=== PATIENT | female | born 1980 | race Caucasian/White ===

== ENCOUNTER 2021-08-28 07:17 | Emergency (ER) | payer OTHER, SELFPAY ==
[2021-08-28 07:27] VITALS: BP 129/84; PULSE 104; RESP 18; TEMP 36.4; O2SAT 99; BMI 27.4
--- NOTE | 2021-08-28 08:30 | ED_ITS ---
HPI - Back Pain/Injury General Chief Complaint: Extremity Injury, Lower Stated Complaint: sciatic nerve pain Time Seen by Provider: 08/28/21 07:58 Source: patient and family Mode of arrival: ambulatory Limitations: no limitations History of Present Illness HPI Narrative: 41 y/o female with history of chronic low back pain, degenerative disc disease, hx migraines who presents to the ER with ongoing left lower extremity pain since March due to her sciatic nerve. She reports back in March she had a course of steroids with brief improvement. She has been suffering with the pain since. It has been worsening with no trauma. She reports pain with sitting or being in one position for too long. She reports the pain is mostly shooting down her left hip and leg with tingling and numbness of her left foot. She has been taking Naproxen with no relief. She denies urinary or bowel incontinence. She has an appointment with her PCP on 09/11 with plan for an MRI. MD elicited complaint: back pain Pertinent past history: prior back pain Timing: constant Severity: severe Pain scale (0-10): 10 Similar Symptoms Previously: Yes Quality: sharp and tingling Location: left lower back Radiation: left upper leg and left leg below the knee Exacerbating factors: movement Relieving factors: none Context: unknown Associated symptoms: difficulty walking, parasthesias, arthralgias and myalgias Treatments prior to arrival: NSAIDS Work related injury: No Related Data Home Medications Medication Instructions Recorded Confirmed naproxen 500 mg tablet 500 mg PO BID PRN 01/16/21 tizanidine 4 mg tablet 4 mg PO BEDTIME PRN 01/16/21 Previous Rx's Medication Instructions Recorded ifhixwzoey-viqepgzwwynae-sckowccc 2 cap PO Q4-6H PRN #30 cap 01/16/21 50 mg-300 mg-40 mg capsule (Fioricet) ondansetron 4 mg disintegrating 4 mg PO Q6H PRN #20 tab 01/16/21 tablet cyclobenzaprine 10 mg tablet 10 mg PO BID PRN #14 tab 04/23/21 dexamethasone 4 mg tablet 4 mg PO TID 6 Days #18 tab 04/23/21 (Decadron) cyclobenzaprine 10 mg tablet 10 mg PO TID PRN #14 tab 08/28/21 lidocaine 5 % topical patch 1 patch TOPICAL DAILY #15 ea 08/28/21 naproxen 500 mg tablet 500 mg PO BID PRN #30 tab 08/28/21 prednisone 20 mg tablet 40 mg PO DAILY #14 tab 08/28/21 tramadol 50 mg tablet 50 mg PO TID PRN #10 tab 08/28/21 Allergies Allergy/AdvReac Type Severity Reaction Status Date / Time oxycodone [From PERCOCET] Allergy Unknown UNKNOWN, Verified 08/28/21 07:24 hives Review of Systems Review of Systems: Constitutional: No Fever, No Chills Cardiovascular: No Chest Pain, No SOB Gastrointestinal: No Nausea, No Vomiting, No abdominal Pain Genitourinary: No Dysuria, No Urinary Frequency, No Hematuria Musculoskeletal: + joint pain, + Myalgias Skin: No Skin Lesions, No rash Neuro: No Weakness, + Numbness, No Dizziness, No Headache Psych: + Anxiety/Panic, No Depression Heme/Lymph: No Bruising, No Lymphadenopathy PMFSH Past Medical History Medical History (Updated 08/28/21 @ 09:11 by SATNAM Sims) Degenerative disc disease, lumbar Social History Social History Advance Directives: No Advance Directives Information Provided: No Physical Exam Vital Signs: Vital Signs: Last Vital Signs Temp 97.6 F 08/28/21 07:27 Pulse 104 H 08/28/21 07:27 Resp 17 08/28/21 09:19 BP 129/84 08/28/21 07:27 Pulse Ox 99 08/28/21 07:27 BMI result Body Mass Index 27.4 Appearance: Alert. Oriented X3. Appears uncomfortable. HEENT: normal external inspection. Neck: Normal inspection. Neck supple. CVS: Normal heart rate and rhythm. Pulses normal. Respiratory: No respiratory distress. Breath sounds normal. Abdomen: Soft and nontender. +BS x4 Skin: Skin warm and dry. Normal skin color. Normal skin turgor. No rashes. Back: normal inspection. left lower lumbar area and SI area with tenderness. Extremities: No lower extremity edema. left knee in slight flexion about 15 degrees for comfort, pain with full extension. +straight leg raise test at 30 degrees Neuro: Oriented X 3. No motor deficit. No sensory deficit. Antaglic gait Course Course Course Narrative: 41-year-old female presenting to the ER with 4 months of chronic left lower extremity and left back pain due to sciatica. she denies any trauma. She has been dealing with this for 4 months but woke up this morning and just could not do it anymore. She reports difficulty with her ADLs at home. She has appointment with her PCP in 2 weeks and could not wait any longer. She has been taking naproxen with minimal relief. Symptoms and clinical presentation are consistent with lumbar radiculopathy with shooting nerve pain some left lower extremity. She has no red flag sym ptoms of low back pain. She is denying need for STR And has plenty of support at home. Will give a IM Toradol, tramadol and reassess her pain. Reevaluation(s) Reevaluation #1: Pain improved. Tolerated Tramadol well. Will give Rx for steroids, pain control until she can follow up with her PCP in 2 weeks. Patient agrees with plan and is stable for d/c. Discharge Plan Discharge Clinical Impression: Chronic left-sided low back pain with left-sided sciatica Patient Disposition: Home, Self-Care Instructions: Sciatica (ED), Lumbar Radiculopathy (ED), Lower Back Exercises (ED) Additional Instructions: No bending, lifting or twisting. Use ice several times per day for 20 minutes at a time for the next 48 hours and then change to heat. Take medications as prescribed to help with pain and discomfort. Follow up with your Primary Care Doctor MARTIN If your pain worsens, if you develop new numbness, tingling, weakness, loss of function or incontinence call 911 or come back to the ER right away for evaluation. Prescriptions: New cyclobenzaprine 10 mg tablet 10 mg PO TID PRN (Reason: muscle spasm) Qty: 14 0RF prednisone 20 mg tablet 40 mg PO DAILY Qty: 14 0RF naproxen 500 mg tablet 500 mg PO BID PRN (Reason: pain) Qty: 30 0RF lidocaine 5 % adhesive patch,medicated 1 patch topical DAILY Qty: 15 0RF Rx Instructions: leave on most painful area for up to 12 hrs tramadol 50 mg tablet 50 mg PO TID PRN (Reason: severe pain (scale score 7-10)) Qty: 10 0RF No Action gpfjcfibbb-wluzfaslngbyu-yopb [Fioricet] 50-300-40 mg capsule 2 cap PO Q4-6H PRN (Reason: pain) Qty: 30 0RF Rx Instructions: do not exceed 6 caps per day ondansetron 4 mg tablet,disintegrating 4 mg PO Q6H PRN (Reason: nausea and vomiting) Qty: 20 0RF dexamethasone [Decadron] 4 mg tablet 4 mg PO TID 6 Days Qty: 18 0RF Rx Instructions: take with food cyclobenzaprine 10 mg tablet 10 mg PO BID PRN (Reason: muscle spasm) Qty: 14 0RF Interventions: ED Discharge Assessment Last Done: 08/28/21 09:30 Discharge Date/Time: 08/28/21 09:36
[2021-08-28] MEDS: traMADoL HCL 50 MG TABLET PO (08:43)
[2021-08-28] MEDS: Ketorolac Tromethamine 30 MG/ML VIAL IM (08:43)
[2021-08-28] MEDS: Lidocaine 4 % Patch ADH..PATCH 1 PATCH TRANSDERMA (08:43)
--- NOTE | 2021-08-28 09:18 | PC.NURSE ---
NO NEGATIVE REACTION NOTED FROM TRAMADOL. PT REPORTS SIGNIFICANT RELIEF FROM PAIN.
[2021-08-28 09:19] VITALS: RESP 17
== END 2021-08-28 09:36 | disposition home or self-care (01) ==
PROVIDERS: Emergency Provider Emergency Medicine; PCP Internal Medicine
DX: M54.42 Lumbago with sciatica, left side (principal); M79.605 Pain in left leg; Z79.899 Other long term (current) drug therapy
CPT/HCPCS: 96372; 99283; 99284; J1885

== ENCOUNTER → 2022-10-16 13:18 | Outpatient (BNVA) | payer OTHER, SELFPAY | PROVIDERS: PCP Internal Medicine; Visit Provider Neurological Surgery | DX: Z13.89 Encounter for screening for other disorder (principal) ==

== ENCOUNTER 2023-02-11 08:33 | Outpatient (REF) | payer OTHER, SELFPAY ==
--- NOTE | ~2023-02-11 | XR_ITS ---
EXAMINATION: 1. RADIOGRAPHS RIGHT KNEE 2. RADIOGRAPHS LEFT KNEE CLINICAL INFORMATION: Bilateral knee pain COMPARISON: None TECHNIQUE: 3 views of each knee were obtained FINDINGS: Right knee: No fracture or dislocation. No suprapatellar joint effusion. Joint spaces are well-maintained. No significant degenerative changes of the right knee. No focal soft tissue swelling of the anterior knee. Left knee: No fracture or dislocation. No suprapatellar joint effusion. Joint spaces are well-maintained. No appreciable degenerative changes. No focal soft tissue swelling the anterior knee. XR/XR knee LT 3V IMPRESSION: Unremarkable radiographs of the bilateral knees.
--- NOTE | ~2023-02-11 | XR_ITS ---
EXAMINATION: 1. RADIOGRAPHS RIGHT KNEE 2. RADIOGRAPHS LEFT KNEE CLINICAL INFORMATION: Bilateral knee pain COMPARISON: None TECHNIQUE: 3 views of each knee were obtained FINDINGS: Right knee: No fracture or dislocation. No suprapatellar joint effusion. Joint spaces are well-maintained. No significant degenerative changes of the right knee. No focal soft tissue swelling of the anterior knee. Left knee: No fracture or dislocation. No suprapatellar joint effusion. Joint spaces are well-maintained. No appreciable degenerative changes. No focal soft tissue swelling the anterior knee. XR/XR knee RT 3V IMPRESSION: Unremarkable radiographs of the bilateral knees.
== END 2023-02-11 08:34 | disposition home or self-care (01) ==
LOC: HO.HOSX 08:33
PROVIDERS: Visit Provider Orthopaedic Surgery
DX: S83.242A Other tear of medial meniscus, current injury, left knee, initial encounter (principal); M25.561 Pain in right knee
CPT/HCPCS: 73562

== ENCOUNTER 2023-02-11 12:51 | Outpatient (AMB) | payer OTHER, SELFPAY ==
--- NOTE | 2023-02-11 13:04 | A.OFFVIS_ITS ---
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 The patient states that she injured her left knee approximately 1 year ago. She twisted her knee and had acute onset of pain. Since that time her symptoms have gotten worse in spite of continued non operative treatments. She states that her left knee will ?lock? several times per day. She has had injections in the past which gave her minimal relief. She has also done physical therapy for 12 weeks over the last 6 months which aggravated her pain. She has tried Tylenol and ibuprofen which gave her minimal relief. Allergies oxycodone [From PERCOCET] Allergy (Unknown, Verified 08/28/21 07:24) UNKNOWN, hives [facility] Medical History (Updated 02/11/23 @ 13:25 by José Miguel Lees MD) Degenerative disc disease, lumbar Surgical History (Updated 02/11/23 @ 13:10 by Dora Mcdonough CMA) H/O tubal ligation Previous back surgery Social History (Updated 02/11/23 @ 13:10 by Dora Mcdonough CMA) Patient Tobacco Use Status: Former Tobacco user Quit Date: 4 years ago Current occupational status: disabled Physical Exam Vital Signs: BMI result Body Mass Index 27.8 Const Other: Well-nourished well-developed very friendly female awake alert and oriented x3 in no acute distress Extrem Other: Bilateral lower extremity examination shows good capillary refill, no skin lesions noted Left knee examination shows a minimal effusion, minimal crepitus with range of motion, tenderness along her medial joint line, positive Konstantin's test, positive patellar lateral subluxation apprehensive test Assessment & Plan Assessment & Plan (1) Tear of medial meniscus of left knee: Code(s): S83.242A - Other tear of medial meniscus, current injury, left knee, initial encounter Plan: Ms. Rosario presents with progressively worsening left knee pain and mechanical symptoms most likely due to patellar subluxation as well as possible tearing of her medial meniscus. Thus, I will send her for an MRI of her left knee for further evaluation. I will see her back once the MRI is completed to discuss the findings and treatment options. Feel free to call me at any time should both regarding her orthopedic management arise. Thank you very much for asking me to see this very friendly patient. I spent 22 minutes in reviewing the patient's records and imaging studies, seeing the patient and documenting in the medical record. Orders: Orders XR knee LT 3V Today M25.562 - Pain in left knee XR knee RT 3V Today M25.561 - Pain in right knee MR knee LT wo con Today S83.242A - Other tear of medial meniscus, current injury, left knee, initial encounter Coding Level of Care Code New Pt Level 2 (45673) Diagnoses Tear of medial meniscus of left knee S83.242A
[2023-02-11 13:07] VITALS: BMI 27.8
== END 2023-02-11 13:26 | disposition home or self-care (01) ==
PROVIDERS: PCP Internal Medicine; Visit Provider Orthopaedic Surgery
DX: S83.242A Other tear of medial meniscus, current injury, left knee, initial encounter (principal)
CPT/HCPCS: 99202

== ENCOUNTER 2023-03-18 19:31 | Outpatient (REF) | payer OTHER, SELFPAY ==
--- NOTE | ~2023-03-18 | MR_ITS ---
EXAMINATION: MR KNEE WITHOUT CONTRAST, LEFT CLINICAL INFORMATION: Left knee pain and swelling. Difficulty with weightbearing. Evaluate for a meniscal tear. COMPARISON: Left knee radiographs dated 02/11/2023. TECHNIQUE: MRI of the knee without contrast was performed using routine sequences on a high-field scanner. FINDINGS: MENISCI: Medial Meniscus: Intact Lateral Meniscus: Intact LIGAMENTS: Cruciate: Intact Collateral: Intact EXTENSOR MECHANISM: Intact quadriceps and patellar tendons. Mildly elevated TT TG distance measuring 1.6 cm. Mild patella aleah. Edema within the superolateral aspect of Hoffa's fat pad, which can be seen in the setting of patellar tendon lateral femoral condyle friction syndrome. ARTICULAR CARTILAGE/BONE: Patellofemoral Compartment: Central patellar median ridge and lateral patellar facet articular cartilage signal heterogeneity with areas of partial-thickness fibrillation. Tiny marginal osteophytes. Medial Compartment: Intact articular cartilage. Lateral Compartment: Full-thickness articular cartilage defect at the weightbearing lateral tibial plateau measuring 0.9 x 0.9 cm (AP by ML) with prominent underlying marrow edema. JOINT FLUID AND BURSAE: Small joint effusion and small Brown's cyst. Small loose body within the joint recess posterosuperior to the medial femoral condyle measuring up to 0.4 cm (coronal image 04/25). MR/MR knee LT wo con IMPRESSION: 1. Full-thickness articular cartilage defect at the weightbearing lateral tibial plateau measuring 0.9 x 0.9 cm with prominent underlying marrow edema. 2. Mild patellofemoral osteoarthritis. Small joint effusion and small Brown's cyst. Small loose body within the joint recess posterosuperior to the medial femoral condyle measuring up to 0.4 cm. 3. No acute meniscal or ligamentous injury. 4. Mildly elevated TT TG distance with patella aleah. Edema within the superolateral aspect of Hoffa's fat pad, which can be seen in the setting of patellar tendon lateral femoral condyle friction syndrome.
== END 2023-03-18 19:32 | disposition home or self-care (01) ==
LOC: HO.MRI 19:31
PROVIDERS: PCP Internal Medicine; Visit Provider Orthopaedic Surgery
DX: S83.242A Other tear of medial meniscus, current injury, left knee, initial encounter (principal)
CPT/HCPCS: 73721

== ENCOUNTER 2023-03-27 10:17 | Outpatient (AMB) | payer OTHER, SELFPAY ==
--- NOTE | 2023-03-27 10:44 | A.OFFVIS_ITS ---
Intake Intake Visit Reasons: ov- MRI Knee LT review Intake Note: Pt presents to the office today for a follow up MRI LT knee review. Pt states she is still in excruciating pain. Pt states she cant sleep due to the severity of her pain. Her left knee pain has gotten worse over the last few years in spite of continued non operative treatments. She has tried Tylenol and anti- inflammatory medicines which gave her minimal relief. She has also done physical therapy which aggravated her pain. She has had multiple injections which gave her minimal relief. Allergies oxycodone [From PERCOCET] Allergy (Unknown, Verified 03/27/23 10:45) UNKNOWN, hives Medication List - Last Reconciled 03/27/23 by José Miguel Lees MD albuterol sulfate 90 mcg/actuation 0 mcg inhalation fluoxetine 10 mg PO DAILY ibuprofen 600 mg PO Q6H PRN PFSH Medical History Degenerative disc disease, lumbar Surgical History Previous back surgery H/O tubal ligation Social History Patient Tobacco Use Status: Former Tobacco user Quit Date: 4 years ago Current occupational status: disabled Physical Exam Const Other: Well-nourished well-developed very friendly female awake alert and oriented x3 in no acute distress Extrem Other: Bilateral lower extremity examination shows good capillary refill, no skin lesions noted, normal sensation light touch Left knee examination shows a minimal effusion, with tenderness along her lateral joint line, pain with range of motion, no instability Results Reviewed Results Reviewed: MRI of the patient's left knee shows bony edema within the lateral tibial plateau as well as a full-thickness articular cartilage defect consistent with severe localized degenerative joint disease Assessment & Plan Assessment & Plan (1) Left knee pain: Code(s): M25.562 - Pain in left knee Plan Ms. Chávez presents with left knee pain due to severe lateral unicompartmental degenerative joint disease. I had a lengthy discussion with the patient regarding the treatment options. At this point he appears to have failed continued non operative treatments. Patient may be a candidate for a partial knee replacement. Thus, I gave her contact information for two orthopedic surgeons here in [facility] who performed this type of surgery. She will contact their offices to make follow-up appointments. She will follow up with me on an as-needed basis. Feel free to call me at any time should questions regarding her orthopedic management arise. I spent 22 minutes in reviewing the patient's records and imaging studies, seeing the patient and documenting in the medical record. Coding Level of Care Code Est Pt Level 2 (90786) Diagnoses Left knee pain M25.562
== END 2023-03-27 11:11 | disposition home or self-care (01) ==
PROVIDERS: PCP Internal Medicine; Visit Provider Orthopaedic Surgery
DX: M25.562 Pain in left knee (principal)
CPT/HCPCS: 99212

== ENCOUNTER → 2023-03-27 10:17 | Outpatient (BNVA) | payer OTHER, SELFPAY | PROVIDERS: PCP Internal Medicine; Visit Provider Orthopaedic Surgery ==

== ENCOUNTER 2023-04-16 14:31 | Outpatient (REF) | payer OTHER, SELFPAY ==
--- NOTE | ~2023-04-16 | XR_ITS ---
EXAMINATION: XR LUMBOSACRAL SPINE WITH OBLIQUES CLINICAL INFORMATION: Arthrodesis status. COMPARISON: None available. TECHNIQUE: 4 views of the lumbar spine including AP, lateral, flexion and extension. FINDINGS: Mild rightward curvature of the lumbar spine. Status post fusion with paired rods and screws as well as interdisc spacer at L5-S1. Hardware appears intact. Mild anterolisthesis of L5 on S1. Mild spondylosis in the remainder of the lumbar spine. Facet arthritis in the remaining qsy-go-zafby lumbar spine. XR/XR lumbar spine 4V min IMPRESSION: Status post fusion with paired rods and screws as well as interdisc spacer at L5-S1. Hardware appears intact. Mild anterolisthesis of L5 on S1.
== END 2023-04-16 14:32 | disposition home or self-care (01) ==
LOC: HO.HOSX 14:31
PROVIDERS: Visit Provider Neurological Surgery
DX: Z98.1 Arthrodesis status (principal)
CPT/HCPCS: 72110

== ENCOUNTER 2023-04-16 14:31 | Outpatient (AMB) | payer OTHER, SELFPAY ==
--- NOTE | 2023-04-16 14:44 | A.SPINEOV_ITS ---
Intake Intake Visit Reasons: 6 month f/u Intake Note: Mrs. Toure is here today for her 6mo f/u. 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 Incision sites are closed, well healing, with no signs of drainage. We will follow-up with the patient in 6 weeks for his 2nd postoperative visit. At that time we will get x-rays to review with the patient. Plan Procedure: L4-5 TOMMIE Gutierrez comes in today for her 6 month follow up visit after having an L4-[address] Vazquez on 06/05/23. She reports that the radiating pain down her left leg is gone. She also states that she goes for walks daily and is completing the majority of her ADLs. Unfortunately she still has some intermittent axial low back pain, and she continues to take OTC medications to help treat this. She reports that around the time that she was recovering from surgery she began having significant pains in her left knee. She states that she saw Dr. Sarabia here at [facility] who referred her out to [facility] for a specialist opinion on partial replacement knee surgery. She states that both her and her primary care have been suspicious for the possibility of rheumatoid arthritis as her mother has this. We reviewed lumbar spine X-rays today which show stable placement of her L4-5 cage / instrumentation. The patient has reduced strength in her left lower extremity due to pain from her left knee. Right lower extremity strength is full. Upper extremity strength is full. She reports that she continues to have numbness in her left heel which has been persistent since before her surgeries. The rest of her sensation is grossly intact. She ambulates with an antalgic gait and stabilizes herself on the chair to rise from a seated position. Brenda is likely having axial low back pain that is intermittent as result of her continued antalgic gait that is secondary to her degenerative knee. She was strongly advised to follow through with her knee replacement surgery as recommended by Orthopedics. She was strongly encouraged to follow back up with our office after she recovers from her knee surgery if her axial low back pain does not improve with her corrected gait post surgery. If we do follow up with her we can order a repeat MRI of the lumbar spine to look for any additional pathology that could be causing her pain. This plan was discussed with Dr. Vazquez. Total amount of time spent in this visit was 35 minutes in discussion of symptoms, X-ray imaging results and subsequent plan of care. Constantino Vazquez MD,PhD [facility] Orders: Orders XR lumbar spine 4V min Today Z98.1 - Arthrodesis status Coding Level of Care Code Est Pt Level 4 (31000) Diagnoses S/P lumbar and lumbosacral fusion by anterior technique Z98.1
== END 2023-04-16 15:24 | disposition home or self-care (01) ==
PROVIDERS: PCP Internal Medicine; Visit Provider Neurological Surgery
DX: Z98.1 Arthrodesis status (principal)
CPT/HCPCS: 99214

== ENCOUNTER 2023-09-03 10:01 | Emergency (ER) | payer OTHER, SELFPAY ==
--- NOTE | ~2023-09-03 | CT_ITS ---
EXAMINATION: CT CERVICAL SPINE WITHOUT CONTRAST CLINICAL INFORMATION: Neck pain. COMPARISON: None available. TECHNIQUE: Multidetector helical imaging acquired in the axial plane with generation of reformatted acquisitions. This CT examination was performed using dose optimization techniques as appropriate, variously including the following: *Automated exposure control *Adjustment of mA and/or kV according to patient size (this includes techniques or standardized protocols for targeted exams where dose is matched to indication/reason for exam; i.e. extremities or head) *Use of iterative reconstruction technique DLP: 363 mGy-cm FINDINGS: There is a mild rightward curvature of the cervical spine. The atlantoaxial articulation is normally maintained. The craniovertebral junction is normal. Additional reversal of the normal cervical lordosis evident. There is mild disc space narrowing with endplate spurring at the C5-C6 and C6-C7 levels with disc-osteophyte complexes mildly distorting the ventral thecal sac at both levels. There is srui-bn-lglghmkg left foraminal narrowing at the C5-C6 and C6-C7 levels. Moderate right foraminal encroachment from uncovertebral joint spurring noted at C6-C7 as well, potentially impinging upon the right C7 nerve root. There is question of a left foraminal disc protrusion at the C6-C7 level, which would potentially impinge upon the left C7 nerve root. Small central disc protrusion visible at the C3-C4 level. No acute osseous abnormality is visible. The lung apices are clear. The paraspinal soft tissues are normal. The thyroid gland is mildly heterogeneous without a discrete measurable lesion. CT/CT cervical spine wo IV con IMPRESSION: Reversed cervical lordotic curvature and mild rightward curvature of the cervical spine. Kfem-li-rkkvfzbf spondylitic changes at the C5-C6 and C6-C7 levels with disc-osteophyte complexes and lkvg-uc-dkktalum left foraminal narrowing at both levels. Question of a left foraminal disc protrusion at the C6-C7 level; query for any left C7 radicular symptoms. Osseous spurring resulting in significant right foraminal encroachment at the C6-C7 level. If clinically indicated, a nonemergent follow-up MRI of the cervical spine could be considered for further evaluation.
[2023-09-03 10:34] VITALS: BP 156/103; PULSE 86; RESP 20; TEMP 36.4; O2SAT 99; BMI 28.3
--- NOTE | 2023-09-03 12:02 | ED.EXTPRO ---
HPI - Extremity Problem General Chief complaint: Extremity Injury, Upper Stated complaint: Numbness/tingling left arm Time Seen by Provider: 09/03/23 11:54 Source: patient Mode of arrival: ambulatory Limitations: no limitations History of Present Illness HPI Narrative: 43-year-old female history of degenerative disc disease with previous surgery on L5-S1 presenting with complaints of neck pain, with radiation to bilateral upper extremities, she recently had a scan showing neuroforaminal stenosis of lower cervical spine they wanted her to follow-up with the orthopedic team, she is scheduled to see them tomorrow however she states she came in today due to increasing pain she does not think she can make it till tomorrow. Patient denies fevers, chills, nausea, vomiting, chest pain, shortness of breath, numbness, tingling, saddle paresthesias, changes in gait, blunt trauma. Related Data Home Medications Medication Instructions Recorded Confirmed albuterol sulfate 90 mcg/actuation 0 mcg inhalation 02/11/23 03/27/23 aerosol inhaler fluoxetine 10 mg capsule 10 mg PO DAILY 02/11/23 03/27/23 ibuprofen 600 mg tablet 600 mg PO Q6H PRN 02/11/23 03/27/23 Previous Rx's Medication Instructions Recorded ketorolac 10 mg tablet 10 mg PO TID PRN pain 5 days #15 09/03/23 tabs prednisone 20 mg tablet 40 mg (2 x 20 mg) PO DAILY 5 days 09/03/23 #10 tabs Allergies Allergy/AdvReac Type Severity Reaction Status Date / Time acetaminophen [From Percocet] Allergy Intermediate Hives Verified 09/03/23 10:38 oxycodone [From PERCOCET] Allergy Unknown UNKNOWN, Verified 09/03/23 10:38 hives Review of Systems Review of Systems: Yes all other systems are reviewed and are negative PMFSH Past Medical History Attestation statement: The following information was validated with the patient. Source: old records reviewed and nursing notes reviewed Medical History Degenerative disc disease, lumbar Surgical History Previous back surgery H/O tubal ligation Social History Social History Patient Tobacco Use Status: Former Tobacco user Quit Date: 4 years ago Current occupational status: disabled Physical Exam Vital Signs: Vital Signs: Last Vital Signs Temp 98.1 F 09/03/23 14:47 Pulse 68 09/03/23 14:47 Resp 18 09/03/23 14:47 BP 163/94 H 09/03/23 14:47 Pulse Ox 100 09/03/23 14:47 O2 Del Method Room Air 09/03/23 14:47 BMI result Body Mass Index 28.3 Patient noted to be hypertensive likely secondary to pain Appearance: Alert.? Oriented X3.? No acute distress.? Head: Normocephalic, atraumatic, no step-offs or deformities Eyes: Pupils equal, round and reactive to light.? ENT: Pharynx normal.? Neck: patient uncomfortable with range of motion of neck, discomfort with palpation of cervical paraspinous muscles bilaterally as well as midline tenderness to the lower cervical region. 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 Negative Romberg and pronator drift. Normal sensation distally. Capillary refill to bilateral upper extremities less than 2 seconds. No wrist drop. CVS: Normal heart rate and rhythm.? Pulses normal.? Respiratory: No respiratory distress.? Breath sounds normal.? Abdomen: Soft and nontender.? Skin: Skin warm and dry.? Normal skin color.? Normal skin turgor.? Extremities: No lower extremity edema.? No calf ttp. 5/5 strength to bilateral upper and lower extremities Neuro: Oriented X 3.? No motor deficit.? No sensory deficit. CN 2-12 intact Course Reevaluation(s) Reevaluation #1: Repeat neurological assessment decreased strength left upper extremity after pain control. Patient reports her pain was an 8/10 now a 3/10. Feeling much better. CT of cervical spine reverse cervical lordotic curvature and mild rightward curvature of the cervical spine. Uxhj-tn-jlbqfzzf spondylitic changes at C5-C6 and C6 and C7 with disc osteophyte complexes and wxyo-eo-njxfvivx left foraminal narrowing at both levels question of a left foraminal disc protrusion at C6-C7 level query for a left C7 radicular symptoms. Osseous spurring resulting in significant right foraminal encroachment at the C6-C7 level. Nonemergent MRI recommended. I did reach out to neuro spine to try to get patient in sooner than later patient now has an appointment for Friday. Patient feeling much better to be discharged home with Toradol. Educated patient on diagnosis and treatment plan, answered all question, patient verbalizes understanding. At this time patient will be discharged home, advised to return with new or worsening symptoms. Educated on worrisome signs and symptoms and when to return. At this time I feel comfortable discharge home. Time: 14:57 Medications Administered Discontinued Medications Generic Name Dose Route Start Last Admin Trade Name Lelo PRN Reason Stop Dose Admin Ketorolac Tromethamine 30 mg 09/03/23 12:31 09/03/23 12:47 Ketorolac Tromethamine 30 Mg/Ml Vial IM 09/03/23 12:32 30 mg ONCE ONE Administration Lidocaine 1 patch 09/03/23 12:31 09/03/23 12:47 Lidocaine 4 % Patch Adh..Patch TRANSDERMA 09/03/23 12:32 1 patch ONCE ONE Administration Protocol Medical Decision Making Medical Decision Making MDM Narrative: 43-year-old female presents neck pain and radiation to bilateral upper extremities. Scheduled to see ortho tomorrow. Physical exam patient uncomfortable with range of motion of neck, discomfort with palpation of cervical paraspinous muscles bilaterally as well as midline tenderness to the lower cervical region. 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 Negative Romberg and pronator drift. Normal sensation distally. Capillary refill to bilateral upper extremities less than 2 seconds. No wrist drop. History and physical exam concerning for cervical radiculopathy versus neuroforaminal stenosis versus osteoarthritis. Unlikely fractures, dislocations, traumatic subluxations. No signs of cervical myelopathy or cord compression at this time Plan at this time CT of neck Differential Diagnosis Differential Diagnoses: The differential diagnosis associated with the presentation includes History and physical exam concerning for cervical radiculopathy versus neuroforaminal stenosis versus osteoarthritis. Unlikely fractures, dislocations, traumatic subluxations. No signs of cervical myelopathy or cord compression at this time Admission/Observation Consideration of admission/observation: Escalation of care including admission/observation considered Independent Interpretation I performed an independent interpretation of an: CT Scan Radiology Impression Discussion of test interpretation with radiology: I have reviewed the radiologist's reading. Critical Care Time Critical Care Time Critical Care Time: Yes Total Critical Care Time: 35 Attestation: I attest to this time spent taking care of the patient, obtaining history, physical, reviewing labs, imaging, speaking to my attending, Discharge Plan Discharge Clinical Impression: Cervical radiculopathy, LUE weakness Patient Disposition: Home, Self-Care Instructions: Cervical Radiculopathy (ED) Additional Instructions: Take your medications as prescribed. If you were prescribed antibiotics today, it is important that you take your medication to their entirety, do not skip any doses, do not finish them early. Follow-up with your primary care provider this week. Return to the emergency department with new or worsening symptoms. Such as fevers, chills, chest pain, shortness of breath, nausea, vomiting, dizziness, headache, vision changes, lethargy In case of emergency call 911 Prescriptions: New prednisone 20 mg tablet 40 mg PO DAILY 5 Days Qty: 10 0RF ketorolac 10 mg tablet 10 mg PO TID PRN (Reason: pain) 5 Days Qty: 15 0RF No Action ibuprofen 600 mg tablet 600 mg PO Q6H PRN fluoxetine 10 mg capsule 10 mg PO DAILY albuterol sulfate 90 mcg/actuation HFA aerosol inhaler 0 mcg inhalation Referrals: Audi Hoffman III, MD [Primary Care Provider] - 1 day Jesus Vazquez MD, PhD [Physician] - 1 day
[2023-09-03 12:16] VITALS: BP 170/76; PULSE 83; RESP 18; TEMP 36.8; O2SAT 99
[2023-09-03] MEDS: Lidocaine 4 % Patch ADH..PATCH 1 PATCH TRANSDERMA (12:47)
[2023-09-03] MEDS: Ketorolac Tromethamine 30 MG/ML VIAL IM (12:47)
[2023-09-03 14:47] VITALS: BP 163/94; PULSE 68; RESP 18; TEMP 36.7; O2SAT 100
== END 2023-09-03 14:59 | disposition home or self-care (01) ==
PROVIDERS: Emergency Provider Emergency Medicine; PCP Internal Medicine
DX: M54.12 Radiculopathy, cervical region (principal); R53.1 Weakness
CPT/HCPCS: 72125; 96372; 99283; 99284; J1885

== ENCOUNTER 2023-09-04 11:20 | Outpatient (AMB) | payer OTHER, SELFPAY ==
--- NOTE | 2023-09-04 11:44 | MHC.OFFVIS ---
Intake Vital Signs 09/04/23 11:45 Height 5 ft 2 in Weight 155 lb BMI 28.3 Intake Visit Reasons: Newprob- neck/ left arm pain and tingling Intake Note: Brenda a 43 year old female presents today for an evaluation of neck and left arm. Patient reports left arm pain and numbness as well as neck pain for the last 21 days. Radiating sharp pains from neck to arm which elevates her HBP. Patient has tried Prednisone 2x. Seen in ED 09/03/[address] scan done. Hx of lumbar fusion from L5-S1. Allergies acetaminophen [From Percocet] Allergy (Intermediate, Verified 09/04/23 11:50) Hives oxycodone [From PERCOCET] Allergy (Unknown, Verified 09/04/23 11:50) UNKNOWN, hives Medication List - Last Reconciled 09/04/23 by Myrna Voss MD albuterol sulfate 90 mcg/actuation 0 mcg inhalation fluoxetine 10 mg PO DAILY ibuprofen 600 mg PO Q6H PRN ketorolac 10 mg PO TID PRN 5 days prednisone 40 mg (2 x 20 mg) PO DAILY 5 days HPI HPI Comments History of Present Illness Details Left handed. On disability. Denies inciting injuries. Spontaneous onset neck pain, woke up with this. Left sided and grabs the biceps, then visible left vein on forearm, twisting left hand. Did home remedies NSAIDs, ice, topicals. Saw PCP 2 weeks after 08/21, xray done and told mild neuroforaminal stenosis, given prednisone taper. Followed up the week after and referred to ortho. 5 days started feeling tingling. 3 days started having left shoulder pain, tingling, nausea, which continued this few days with anxiety and palpitation. Went to ER last night 09/02/22, SBP 150-170s, CT done. Report as below. IM toradol and lidocain patch given. Given another prednisone taper. Yesterday 8/10 pain but now down to 3/10. Already has appointment with Dr. Vazquez next Friday. Previously seen by ortho for left knee and neurosurgery for lumbar; L4-[address] Vazquez on 06/05/23 [facility] [place] Medical History Degenerative disc disease, lumbar Surgical History Previous back surgery H/O tubal ligation Social History Patient Tobacco Use Status: Former Tobacco user Quit Date: 4 years ago Current occupational status: disabled Review of Systems Const All systems reviewed & are unremarkable except as noted in HPI and below Physical Exam Vital Signs: BMI result Body Mass Index 28.3 Constitutional: Patient appears to be in no acute distress, well nourished and well developed. Patient was appropriately conversant and oriented. Uncomfortable due to pain. MSK: Inspection reveals appropriate head and neck positioning. Limited cervical range of motion due to pain. Unable to fully do Spurling sign. No hyperreflexia. Negative Shari's sign. Give-way weakness in left upper extremity due to pain. Tightness noted on bilateral upper trapezius, but more tender. No scapular winging. Neurological: Give-way weakness on left upper extremity. Rest is 5/5. Velásquez?s negative bilaterally. Babinski was down going bilaterally. Clonus was negative. Gait is antalgic without loss of balance, but suspect antalgia is from left knee pain and back pain. Results Reviewed Results Reviewed: I independently reviewed the results of the following: CT lumbar possible disc osteophyte complex left C6-7 but cannot visualize disc herniation or soft tissues on CTs. Loss of cervical lordosis noted. Ordering Physician: Mike Arnett Date of Service: 09/03/23 Procedure(s): CT cervical spine wo IV con Accession Number(s): [id number] cc: Mike Arnett; Audi Hoffman III, MD~ EXAMINATION: CT CERVICAL SPINE WITHOUT CONTRAST CLINICAL INFORMATION: Neck pain. COMPARISON: None available. TECHNIQUE: Multidetector helical imaging acquired in the axial plane with generation of reformatted acquisitions. This CT examination was performed using dose optimization techniques as appropriate, variously including the following: *Automated exposure control *Adjustment of mA and/or kV according to patient size (this includes techniques or standardized protocols for targeted exams where dose is matched to indication/reason for exam; i.e. extremities or head) *Use of iterative reconstruction technique DLP: 363 mGy-cm FINDINGS: There is a mild rightward curvature of the cervical spine. The atlantoaxial articulation is normally maintained. The craniovertebral junction is normal. Additional reversal of the normal cervical lordosis evident. There is mild disc space narrowing with endplate spurring at the C5-C6 and C6-C7 levels with disc-osteophyte complexes mildly distorting the ventral thecal sac at both levels. There is gsat-if-mcthocrq left foraminal narrowing at the C5-C6 and C6-C7 levels. Moderate right foraminal encroachment from uncovertebral joint spurring noted at C6-C7 as well, potentially impinging upon the right C7 nerve root. There is question of a left foraminal disc protrusion at the C6-C7 level, which would potentially impinge upon the left C7 nerve root. Small central disc protrusion visible at the C3-C4 level. No acute osseous abnormality is visible. The lung apices are clear. The paraspinal soft tissues are normal. The thyroid gland is mildly heterogeneous without a discrete measurable lesion. CT/CT cervical spine wo IV con IMPRESSION: Reversed cervical lordotic curvature and mild rightward curvature of the cervical spine. Pnpe-jl-ubylfxjp spondylitic changes at the C5-C6 and C6-C7 levels with disc-osteophyte complexes and aifz-sb-dputkryz left foraminal narrowing at both levels. Question of a left foraminal disc protrusion at the C6-C7 level; query for any left C7 radicular symptoms. Osseous spurring resulting in significant right foraminal encroachment at the C6-C7 level. If clinically indicated, a nonemergent follow-up MRI of the cervical spine could be considered for further evaluation. I reviewed records from the following: ortho and neurosurgery Assessment & Plan Assessment & Plan (1) Cervical radiculitis: Code(s): M54.12 - Radiculopathy, cervical region (2) Myofascial pain: Code(s): M79.18 - Myalgia, other site Plan Acute onset left-sided neck pain. CT scan showed suggestion of foraminal stenosis left C6-7. No signs of radiculopathy or myelopathy on exam. I think there is myofascial component adding to overall pain. Offered to refer to PT but she would like to wait until she sees Dr. Vazquez next week. Defer ordering MRI to Dr. Vazquez as well. Assessment and plan discussed with patient, and patient was agreeable. All questions were answered thoroughly. Follow-up as needed. Myrna Voss MD, JENNIFFER Board Certified, [place] [employer] and Rehabilitation (ABPMR) Board Certified, [place] Board [employer] Electrodiagnostic Medicine (ABEM) Coding Level of Care Code New Pt Level 4 (23161) Diagnoses Cervical radiculitis M54.12 Myofascial pain M79.18
[2023-09-04 11:45] VITALS: BMI 28.3
== END 2023-09-04 12:11 | disposition home or self-care (01) ==
PROVIDERS: PCP Internal Medicine; Visit Provider Physical Medicine & Rehabilitation
DX: M54.12 Radiculopathy, cervical region (principal); M79.18 Myalgia, other site
CPT/HCPCS: 99204

== ENCOUNTER → 2023-09-04 11:20 | Outpatient (BNVA) | payer OTHER, SELFPAY | PROVIDERS: PCP Internal Medicine; Visit Provider Physical Medicine & Rehabilitation ==

== ENCOUNTER 2023-09-09 14:15 | Outpatient (AMB) | payer OTHER, SELFPAY ==
--- NOTE | 2023-09-09 14:23 | HO.SPINEOV ---
Intake Intake Visit Reasons: ED f/up Intake Note: Ms. Chávez is here today for ED F/[place] [facility] [place] 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 Dr. Vazquez had a previous lumbar fusion on her a few years back and she did quite well from that. She tells me that about a month ago or so she awoke in the morning with a peculiar feeling in her left arm which ultimately transitioned as the day went on into severe pain starting from the top of her left trapezius area going down into her left arm and into her hand. There is tingling of her hand and she seems to identify the middle finger as the part of the hand that feels numb the most. She started with ibuprofen, activity modifications etc.. This did not seem to help. About a week ago or so she was in the emergency room. She was given steroids and that did help slightly but did not take away the pain. She is having tremendous difficulty with simple things like sleeping, basic ADLs, getting dressed etc.. On my exam today, she looks very uncomfortable, she can barely lift her arm up because of the amount of pain shooting down into her hand. Examination was difficult. There may be some slight weakness but is difficult to tell secondary to effort. She has diminished biceps and diminished triceps reflex on the left. No Velásquez's sign. CT scan done in the emergency room at [place] shows reversal of the normal lordotic curvature of the cervical spine, there may be foraminal narrowing at C5-6 and C6-7 but within limitations of CT I can not be 100% sure if there is nerve compression but I suspect there is. Impression: 43-year-old female known to Dr. Vazquez from previous lumbar fusion a few years ago for which she did well, presents now with 1 month of cervical radiculitis, I suspect at C6-7. She is tried Motrin, steroids, tincture of time, activity modifications. She has a tremendous amount of pain. I think it warrants an MRI to see if there is a herniated disc. I will call her in gabapentin to help with some of the arm pain. I will see her back after the MRI. Total amount of time spent in this visit was 20 minutes in discussion of symptoms, cervical CT imaging results and subsequent plan of care Henry Vazquez MD,PhD [facility] Orders: Orders MR cervical spine wo con Today M54.12 - Radiculopathy, cervical region Medications: New gabapentin 300 mg PO TID 90 caps 11RF Coding Level of Care Code Est Pt Level 3 (69265) Diagnoses Cervical radiculitis M54.12
== END 2023-09-09 14:48 | disposition home or self-care (01) ==
PROVIDERS: PCP Internal Medicine; Visit Provider Physician Assistant
DX: M54.12 Radiculopathy, cervical region (principal)
CPT/HCPCS: 99213

== ENCOUNTER → 2023-09-09 14:15 | Outpatient (BNVA) | payer OTHER, SELFPAY | PROVIDERS: PCP Internal Medicine; Visit Provider Physician Assistant ==

== ENCOUNTER 2023-09-23 18:40 | Outpatient (REF) | payer OTHER, SELFPAY ==
--- NOTE | ~2023-09-23 | MR_ITS ---
EXAMINATION: MR CERVICAL SPINE WITHOUT CONTRAST CLINICAL INFORMATION: Cervical radiculopathy. Left upper extremity pain, numbness, and weakness. COMPARISON: Cervical spine CT scan 09/03/2023. TECHNIQUE: MRI of the cervical spine was obtained using routine sequences without contrast. FINDINGS: There is straightening of the cervical lordosis. Alignment is otherwise normal. Vertebral body heights are preserved. There are type I degenerative endplate changes at C6-C7 and to a lesser degree at C5-C6. There is loss of intervertebral disc height and T2 signal intensity at multiple levels related to disc degeneration. There is no canal compromise or cord compression. No abnormal intramedullary signal changes. The cervicomedullary junction is normal. Limited visualization of the posterior fossa reveals no abnormal finding. Occipital condyles and lateral C1 masses are intact. There is degenerative arthrosis of the atlantodental joint. C1-C2 articular facets are unremarkable. At C2-C3 the annular contour is normal. No canal or neuroforaminal compromise. At C3-C4 there is a shallow central protrusion. No canal stenosis. No neuroforaminal encroachment. At C4-C5 there is a small central annular fissure. No canal stenosis. No neuroforaminal encroachment. At C5-C6 there is a bulging disc. No canal stenosis. Uncovertebral joint spurring and facet degenerative change causes moderate left and mild right neuroforaminal encroachment. At C6-C7 there is a small left foraminal soft disc protrusion superimposed upon a bulging disc causing severe left neuroforaminal encroachment. No canal stenosis. Uncovertebral joint spurring and facet degenerative change also causes mild right neuroforaminal narrowing at this level. At C7-T1 narrowing contour is normal. No canal or neuroforaminal compromise. Visualized soft tissues of the neck are normal. Vascular flow voids are maintained. MR/MR cervical spine wo con IMPRESSION: There is multilevel spondylosis primarily involving the mid to lower cervical spine. A left foraminal soft disc protrusion superimposed upon a bulging disc at C6-C7 causes severe left neuroforaminal encroachment. No canal compromise or cord compression. No abnormal intramedullary signal changes.
== END 2023-09-23 18:41 | disposition home or self-care (01) ==
LOC: HO.MRI 18:40
PROVIDERS: PCP Internal Medicine; Visit Provider Physician Assistant
DX: M54.12 Radiculopathy, cervical region (principal)
CPT/HCPCS: 72141

== ENCOUNTER 2023-09-25 14:00 | Outpatient (AMB) | payer OTHER, SELFPAY ==
--- NOTE | 2023-09-25 14:14 | A.SPINEOV_ITS ---
Intake Intake Visit Reasons: mri f/u Intake Note: Ms. Chávez is here today to F/u on MRI. Wire Spiral Binder Required: No Allergies acetaminophen [From Percocet] Allergy (Intermediate, Verified 09/04/23 11:50) Hives oxycodone [From PERCOCET] Allergy (Unknown, Verified 09/04/23 11:50) UNKNOWN, hives Assessment & Plan Assessment & Plan (1) Cervical radiculitis: Code(s): M54.12 - Radiculopathy, cervical region Plan Mrs Chávez is back here today to review her MRI. She still continues to have terrible left arm pain going down into her hand. She is taking the Tylenol and gabapentin and holds her over, but as soon as the medications starts to run out the severity of the pain is almost overwhelming. Sleeping is near impossible. On exam, she is still demonstrating some hand weakness and an absent reflex. Her MRI done at [facility] shows an acute herniated disc on the left at C6-7 which I believe explains her pain. Given that she has been dealing with this now for over 2-3 months and has failed conservative treatment I think she had be a good candidate for either total disc arthroplasty or anterior cervical fusion. I will review the imaging with Dr. Vazquez and get back to the patient with a final plan. Pt was given risk and benefits of surgery including but not limited to infec tion, hematoma , nerve injury,durotomy, weakness,bowel/bladder injury, persistent pain, vocal hoarseness as well as the option to continue with conservative treatment and patient wishes to proceed with surgery. Pt is aware they should stop their motrin, aspirin 7 days prior to surgery. All questions were answered to the best of our ability. If there is anything about this patients medical history that we have overlooked or concerns you have about us proceeding with surgery we would appreciate any input you can offer. Total amount of time spent in this visit was 20 minutes in discussion of s ymptoms, cervical MRI imaging results and subsequent plan of care Henry Vazquez MD,PhD [facility] Coding Level of Care Code Est Pt Level 3 (84963) Diagnoses Cervical radiculitis M54.12
== END 2023-09-25 14:46 | disposition home or self-care (01) ==
PROVIDERS: PCP Internal Medicine; Visit Provider Physician Assistant
DX: M54.12 Radiculopathy, cervical region (principal)
CPT/HCPCS: 99213

== ENCOUNTER → 2023-09-25 14:00 | Outpatient (BNVA) | payer OTHER, SELFPAY | PROVIDERS: PCP Internal Medicine; Visit Provider Physician Assistant ==

== ENCOUNTER 2023-12-03 05:55 | Day surgery (SDC) | payer OTHER, SELFPAY ==
[2023-11-18 13:23] VITALS: BMI 28.3
--- NOTE | 2023-12-01 12:21 | HO.ANESPROP2 ---
Documented by User: Elly Chapa NP 12/01/23 12:22 HPI - Anesthesia Eval Consult details Narrative: 43yo F for C6-7 Cervical Disc Arthroplasty PMFSH Active Problems Active Problems: All Active Problems Cervical radiculitis (Acute) Myofascial pain (Acute) S/P lumbar and lumbosacral fusion by anterior technique (Acute) Tear of medial meniscus of left knee (Acute) Left knee pain (Acute) Right knee pain (Acute) Migraine headache (Acute) Past Medical History Medical History Anxiety RLS (restless legs syndrome) Positive PPD, treated Depression Asthma Degenerative disc disease, lumbar Surgical History Surgical History (Updated 12/03/23 @ 07:28 by Destini Horn MD) Hx of right breast biopsy Previous back surgery H/O tubal ligation Social History Social History Are you a primary resident care spec to a significant other at home: No Do you presently have visiting nurse or other home services: No Patient Tobacco Use Status: Former Tobacco user Tobacco use type: Cigarette Years Smoked: 19 Use of substances other than those prescribed or required for medical reasons: No Have you been hit, kicked, punched, or otherwise hurt by someone within the past year? If so, by whom?: No Are you DNR?: No Advance Directives: No Advance Directives Information Provided: Yes Advance Directives on File: No Recently lost weight without trying: No Eating poorly because of decreased appetite: No Nutrition Risks: No Nutritional Risk Patient : No FDLMP: Poor oral hygiene: No Current occupational status: disabled Meds Allergies Allergy/AdvReac Type Severity Reaction Status Date / Time oxycodone [From PERCOCET] Allergy Intermediate Hives Verified 11/18/23 09:39 Home Medications ?Medication ?Instructions ?Recorded ?Confirmed ?Last Taken ?Type albuterol sulfate 90 mcg/actuation 1 puff inhalation Q4H PRN 02/11/23 11/18/23 09/18/23 History aerosol inhaler Shortness Of Breath Or Wheezing fluoxetine 10 mg capsule 10 mg PO QAM 02/11/23 11/18/23 12/02/23 History ibuprofen 600 mg tablet 600 mg PO Q6H PRN Pain 02/11/23 11/18/23 Unknown History docusate sodium 100 mg capsule 100 mg PO BID PRN Constipation 11/18/23 11/18/23 Unknown History valacyclovir 1 gram tablet 2,000 mg PO BID PRN cold sore 11/18/23 11/18/23 Unknown History outbreak Exam Height,Weight and Vital Signs: Height 5 ft 2 in Weight 70.307 kg Assessment and Plan Assessment Anesthesia Assessment: Chart Reviewed Documented by User: Destini Horn MD 12/03/23 07:30 [facility], [facility] Past Medical History Medical History Anxiety RLS (restless legs syndrome) Positive PPD, treated Depression Asthma Degenerative disc disease, lumbar Family History Family history of problems with anesthesia: No Surgical History Surgical History (Updated 12/03/23 @ 07:28 by Destini Horn MD) Hx of right breast biopsy Previous back surgery H/O tubal ligation History of Problems with Anesthesia: No Social History Social History Are you a primary resident care spec to a significant other at home: No Do you presently have visiting nurse or other home services: No Patient Tobacco Use Status: Former Tobacco user Tobacco use type: Cigarette Years Smoked: 19 Use of substances other than those prescribed or required for medical reasons: No Have you been hit, kicked, punched, or otherwise hurt by someone within the past year? If so, by whom?: No Are you DNR?: No Advance Directives: No Advance Directives Information Provided: Yes Advance Directives on File: No Recently lost weight without trying: No Eating poorly because of decreased appetite: No Nutrition Risks: No Nutritional Risk Patient : No FDLMP: Poor oral hygiene: No Current occupational status: disabled Meds Allergies Allergy/AdvReac Type Severity Reaction Status Date / Time oxycodone [From PERCOCET] Allergy Intermediate Hives Verified 05/21/24 09:39 Home Medications ?Medication ?Instructions ?Recorded ?Confirmed ?Last Taken ?Type albuterol sulfate 90 mcg/actuation 1 puff inhalation Q4H PRN 02/11/23 11/18/23 09/18/23 History aerosol inhaler Shortness Of Breath Or Wheezing fluoxetine 10 mg capsule 10 mg PO QAM 02/11/23 11/18/23 12/02/23 History ibuprofen 600 mg tablet 600 mg PO Q6H PRN Pain 02/11/23 11/18/23 Unknown History docusate sodium 100 mg capsule 100 mg PO BID PRN Constipation 11/18/23 11/18/23 Unknown History valacyclovir 1 gram tablet 2,000 mg PO BID PRN cold sore 11/18/23 11/18/23 Unknown History outbreak Exam Height,Weight and Vital Signs: Height 5 ft 2 in Weight 70.307 kg Vital Signs Temp Pulse Resp BP Pulse Ox O2 Del Method 12/03/23 06:26 98.7 F 61 16 112/70 97 Room Air Airway Mallampati Class: II TM Dist: >3cm Neck ROM: Limited Loose/Missing/Broken Teeth: Yes (Missing tooth top left. Denies broken or loose teeth) Heart: RRR Lungs: CTAB Assessment and Plan Assessment Anesthesia Assessment: Anesthesia Plan Discussed and Chart Reviewed Final Anesthetic Review Family History of Problems with Anesthesia: No History of Problems with Anesthesia: No NPO: Yes ASA Class: II Final Preanesthetic Review: No Changes in Pt Med Stat, Meds/Allgs Chart Reviewed, Consent Obtained/Reviewed and Anes Risks/Benef Reviewed Patient Risk: Intermediate Procedure Risk: Intermediate Assessment/Block/Sedation in SS: Assess/Block/Sedation- Anesthetic Plan Anesthetic Plan: GA Disposition: Standard PACU
[2023-12-03] VITALS (13 sets, daily range): BP systolic 112–138; BP diastolic 62–79; PULSE 53–81; RESP 16; TEMP 36.6–37.1; O2SAT 97–100
--- NOTE | ~2023-12-03 | FL_ITS ---
EXAMINATION: XR FLUOROSCOPY WITH IMAGES CLINICAL INFORMATION: C6-C7 cervical disc arthroplasty. COMPARISON: CT cervical spine 09/03/2023. TECHNIQUE: Fluoroscopy Supervised By: Dr. Russo. Fluoroscopy Time: 0.3 min. Cumulative Dose: 9.89 mGy. DAP: 0.171 mGym2. Images: 2. FINDINGS: Intraoperative fluoroscopy and spot films were performed during a procedure in the OR. Two images demonstrate an interbody device at C6-C7 Please see Dr. Russo's report for complete details. FL/FL guidance in OR IMPRESSION: Intraoperative fluoroscopy and spot films were obtained. Please see Dr. Russo's report for complete details.
[2023-12-03] MEDS: Gabapentin 300 MG CAPSULE PO (06:22)
[2023-12-03] MEDS: methocarbamoL 750 MG TABLET PO (06:22)
[2023-12-03] MEDS: Lactated Ringers 1,000 ML 100 ML IVCONT (06:35)
--- NOTE | 2023-12-03 07:22 | MHC.SHP ---
Pre-Procedural Eval Section A - 24 Hr Update-Section A only Date of Service: 12/03/23 Section B - Complete if H&P > 30 days Chief Complaint: Radiculopathy, cervical region Allergies: Allergies Allergy/AdvReac Type Severity Reaction Status Date / Time oxycodone [From PERCOCET] Allergy Intermediate Hives Verified 11/18/23 09:39 Review of Systems Sugical H&P ROS: Negative: Constitution, Cardiovascular, Respiratory, Neurological, Psychiatric, Hem-Onc, Allergic/Immunologic, Gastrointestinal, Genitourinary, Musculoskeletal, Integumentary, Endocrine and Eyes/Ears/Nose/Throat Exam Surgical H&P Exam: Not Evaluated: HEENT, Not Evaluated: Heart, Not Evaluated: Lungs, Not Evaluated: Extremities, Not Evaluated: Abdomen, Not Evaluated: Skin and Not Evaluated: Neurological Exam Comment: Neck patent, normocephalic, trachea midline. Patient is well appearing with no acute signs of distress. Plan Diagnosis/Plan: Unchanged I have reviewed the history and physical and performed a pertinent physical examination on my patient. No changes have occurred unless specified. Plan remains the same C6-7 total disc arthroplasty. Time Spent With Patient Time: Total time managing care of this patient today __10__ minutes.
--- NOTE | 2023-12-03 08:47 | P.OP_ITS ---
Operative Note Operative Note Date of Service: 12/03/23 Narrative: Preoperative Diagnosis: Cervical radiculopathy, left side Procedure: C6-7 total disc arthropathy Informed Consent was obtained for this operation. I have explained the nature, purpose and benefits of the operation. I have discussed the risks and benefit of the operation including possible complications or adverse events with patient/family. Alternative(s) were discussed with the patient with their relative benefits and risks as well as the consequences of not accepting the operation were included in obtaining consent. Surgeon: CRISTIANE REY MD, PHD Procedure Assisted By: SATNAM Valencia Description of Procedure: This patient is suffering from a left cervical radiculopathy. An MRI shows compression of the left C7 nerve root due to a disc osteophyte complex. The patient was offered a total disc arthropathy The procedure complications were explained. The patient was consented. The patient was brought to the operating room and endotracheally intubated. The patient was put in supine position with slight extension of the neck. Prep and drape was done followed by timeout. A mid cervical incision was made followed by opening of the platysma. The prevertebral fascia was reached following the natural planes while the physician pet care assistant provided manual retraction. The prevertebral fascia was opened to expose the disc space. A spinal needle was placed in the disk space to confirm the correct level with xray. The longus colli muscles were released bilaterally and a self retaining retractor was inserted. Two [place] pins were placed in the C6 and C7 vertebral bodies parallel to the endplates and distraction was give over the interspace. The discectomy was completed toward the posterior annulus of the disc. The microscope was brought in. The remainder of the discectomy was completed. The posterior ligament was opened and resected to expose the underlying dura. Bilateral foraminotomies were done. A trial implant was inserted to determine the correct implant size is. Then an artificial disc of sentinel spine of 17 x 15 and 5 mm height was inserted under fluoroscopic guidance. Final x-rays in AP and lateral projection showed a satisfactory position of the implant. The physician pet care assistant took over. The [place] pin was removed. Hemostasis was done. He closed the incision in 2 layers with a 3-0 Vicryl. Steri-Strips used to approximate incision. An OpSite with Tegaderm was used to cover the incision. All sponge and needle counts were correct. Patient was extubated and transported in stable is to recovery room. Anesthesia: General Estimated Blood Loss (ml): 10 mL Duration of Surgery: 45 minutes Postoperative Plan: Discharge home Complications: None
--- NOTE | 2023-12-03 08:53 | PM.DS ---
DS: Providers Provider Date of Service: 12/03/23 Primary care physician: Audi Hoffman III, MD DS: Summary Time Attestation Discharge Coordination Time (in mins): 30 Quality: Safe Use of Opioids Does Pt have an Active Cancer Diagnosis on the Problem List?: No Quality: Stroke Does the patient have a stroke diagnosis?: No Physical Exam Vital Signs: Vital Signs: Last Vital Signs Temp 98.7 F 12/03/23 06:26 Pulse 61 12/03/23 06:26 Resp 16 12/03/23 06:26 BP 112/70 12/03/23 06:26 Pulse Ox 97 12/03/23 06:26 O2 Del Method Room Air 12/03/23 06:26 BMI result Body Mass Index 28.3 Discharge Plan Discharge Patient Disposition: Home, Self-Care Referrals: Audi Hoffman III, MD [Primary Care Provider] - 1 Week Discharge Medications: New hydrocodone-acetaminophen 5-325 mg tablet 1 tab PO Q6H PRN (Reason: severe pain (scale score 7-10)) Qty: 30 0RF Rx Instructions: Partial Fill upon patient request. Continued docusate sodium 100 mg Capsule 100 mg PO BID PRN (Reason: Constipation) valacyclovir 1 gram tablet 2,000 mg PO BID PRN (Reason: cold sore outbreak) ibuprofen 600 mg tablet 600 mg PO Q6H PRN (Reason: Pain) fluoxetine 10 mg capsule 10 mg PO QAM albuterol sulfate 90 mcg/actuation HFA aerosol inhaler 1 puff inhalation Q4H PRN (Reason: Shortness Of Breath Or Wheezing) gabapentin 300 mg capsule 300 mg PO TID Qty: 90 11RF Discharge Orders: Discharge Order (Routine); Ordered 12/03/23 Ordered By: Constantino Morales Diet: Advance to usual diet Activity on Discharge: As tolerated Activity Restrictions/Additional Instructions: After your spinal surgery we ask you to observe the following restrictions/guidelines: Activity: It is normal to feel some discomfort as you increase your activity, but that will improve with time. We ask you avoid heavy lifting or acitivities that cause pain. As a general rule, 8lbs is a safe limit for lifting right after surgery. Walk as much as you feel comfortable but not to exhaustion. You will feel extra tired the first few days after surgery. Stay well hydrated. It is OK to walk up and down stairs You may return to driving when you are off narcotics (such as vicodin, oxycodone, dilaudid, etc), and you are back to normal functional capacity. If you have any concerns please check with office before driving. Return to work is specific to each patient and each surgery, so please speak with your doctor/PA at first follow up. Please bring paperwork such as FMLA at that time if you need it filled out. Medications: We will give you a short supply of narcotics after surgery (usually one weeks worth). If you need more please call the office but do not use more than prescribed. You will need to give our office 48 hours notice if you need narcotics refilled and we do not fill narcotics on weekends or evenings. If you are on a narcotic, it is a good idea to take a stool softener such as colace or senna to avoid constipation If you take blood thinner such as aspirin, Plavix, Coumadin, Effient, Eliquis etc for conditions such as Afib, DVT, Pulmonary embolus, coronary disease, stents etc please speak with your surgeon about specific details as to when you can resume these medications. You can resume NSAIDs on post op day 1 (eg: Motrin, Naproxen, etc). Follow up: Please call the office, , after surgery to arrange a 3 week follow up for wound check. Wound Care: You may remove your dressing on the first day after surgery. ?You may ?leave open to air. Please do not remove the steri strips underneath. they will fall off on their own in one week. IT IS NORMAL FOR THE WOUND TO OOZE OR BE BLOODY FOR A FEW DAYS AFTER SURGERY. ?IF THIS HAPPENS JUST PLACE NEW DRESSING OVER IT TO AVOID STAINING CLOTHES. You may shower on post op day # 1 We ask that you do not let the water soak the wound. If it does get wet, just towel dry lightly. Please do not scrub your incision or place any type of chemical/ointment on the wound. No tub baths, pools or jacuzzis for one month. If you have any leaking or redness from your wound, or fevers, please call the office. Print Language: Romansh
[2023-12-03] MEDS: fentaNYL citrate/PF 100 MCG/2 ML VIAL 25 MCG IVPUSH ×2 (10:24→10:31)
[2023-12-03] MEDS: traMADoL HCL 50 MG TABLET PO (10:24)
== END 2023-12-03 11:39 | disposition home or self-care (01) ==
PROVIDERS: PCP Internal Medicine; Visit Provider Neurological Surgery
PROC: (CPT 22856; principal; 2023-12-03 07:30)
DX: M50.123 Cervical disc disorder at C6-C7 level with radiculopathy (principal); Z88.5 Allergy status to narcotic agent
CPT/HCPCS: 22856; C1776; J0131; J0690; J2250; J2371; J2704; J3010

== ENCOUNTER → 2023-12-03 05:55 | Outpatient (BNV) | payer OTHER, SELFPAY | PROVIDERS: PCP Internal Medicine; Visit Provider Neurological Surgery | DX: M54.12 Radiculopathy, cervical region (principal) | CPT/HCPCS: 22856; 99499 ==

== ENCOUNTER 2023-12-25 09:51 | Outpatient (REF) | payer OTHER, SELFPAY | END 2023-12-25 09:52 | disposition home or self-care (01) | LOC: HO.HOSX 09:51 | PROVIDERS: PCP Internal Medicine; Visit Provider Physician Assistant | DX: Z13.89 Encounter for screening for other disorder (principal) ==

== ENCOUNTER 2023-12-25 09:51 | Outpatient (AMB) | payer OTHER, SELFPAY ==
--- NOTE | 2023-12-25 09:56 | A.SPINEOV_ITS ---
Intake Visit Reasons: 1st post-op Intake Note: Ms. Chávez is here today for her 1st post op appointment. Medical Data Entry Clerk Required: No Allergies oxycodone [From PERCOCET] Allergy (Intermediate, Verified 12/25/23 10:00) Hives Assessment & Plan Assessment & Plan (1) Cervical radiculitis: Code(s): M54.12 - Radiculopathy, cervical region Category: Medical Plan Mrs Chávez is returning to see us today. She is 3 weeks out from her C6-7 total disc arthroplasty. She is doing amazingly well in terms of the left arm pain. She still has some stiffness in the lack of range of motion in her neck but otherwise things seemed to get getting better each week. She has not taken Tylenol now for 3 days. Her wound is healed up great. We discussed activity guidelines, restrictions and expectations after total disc arthroplasty. I will see her back in 6 weeks with a set of x-rays. Henry Vazquez MD, PhD [facility] Orders: Orders XR cervical spine 4V Today M54.12 - Radiculopathy, cervical region Coding Level of Care Code Global (13357) Diagnoses Cervical radiculitis M54.12
== END 2023-12-25 10:35 | disposition home or self-care (01) ==
PROVIDERS: PCP Internal Medicine; Visit Provider Physician Assistant
DX: M54.12 Radiculopathy, cervical region (principal)
CPT/HCPCS: 99024

== ENCOUNTER 2024-02-13 11:20 | Outpatient (AMB) | payer OTHER, SELFPAY ==
--- NOTE | 2024-02-13 11:53 | A.SPINEOV_ITS ---
Intake Visit Reasons: 2nd post op with xrays Intake Note: Ms. Chávez is here today for her 2nd post-op visit with x-rays. Platform Material Handler Manager Required: No Allergies oxycodone [From PERCOCET] Allergy (Intermediate, Verified 02/13/24 11:53) Hives Assessment & Plan Assessment & Plan (1) Cervical radiculitis: Code(s): M54.12 - Radiculopathy, cervical region Category: Medical Plan Mrs Chávez is a little over 2 months out from her C6-7 total disc arthroplasty. She had excellent results with her arm pain. She is now however dealing with an issue with her low back radiating down into her left hip going down into her calf. She is also getting some degree of it on the right side as well. She has had the back pain going on for some time now but it has gotten significantly worse over the last 2 weeks. This is including the leg pain as well. No bowel or bladder incontinence. She has just been trying [id number] medications, activity modifications etc.. Her x-rays look excellent today. I can tell she is uncomfortable from standing and she has a positive straight leg raise at about 20 degrees. Motor examination is normal with intact reflexes. My suspicion is she may have some kind of nerve irritation above her L5-S1 fusion. It has a little early for adjacent segment disease. It is possible that she may have herniated a disc somewhere as she does appear quite uncomfortable. Right now she just wants to treat this conservatively and see how it goes. That seems very reasonable. She will call me if something changes or if there are concerns that make me justify ordering an MRI. I explained to her all of the warning signs such as weakness numbness etc.. Henry Vazquez MD, PhD [facility] Coding Level of Care Code Global (88668) Diagnoses Cervical radiculitis M54.12
== END 2024-02-13 12:42 | disposition home or self-care (01) ==
PROVIDERS: PCP Internal Medicine; Visit Provider Physician Assistant
DX: M54.12 Radiculopathy, cervical region (principal)
CPT/HCPCS: 99024

== ENCOUNTER 2024-02-13 11:20 | Outpatient (REF) | payer OTHER, SELFPAY ==
--- NOTE | ~2024-02-13 | XR_ITS ---
EXAMINATION: XR CERVICAL SPINE CLINICAL INFORMATION: Cervical radiculopathy. COMPARISON: Cervical spine MRI dated 09/23/2023. TECHNIQUE: AP, lateral, open-mouth, flexion, and extension views of the cervical spine. FINDINGS: Mild reversal of the normal cervical lordosis, which may be positional or related to muscular spasm. Intervertebral arthroplasty at C6-C7 without evidence of hardware complication. Mild degenerative disc disease at C5-C6. No concerning lytic or blastic osseous lesion. No acute fracture or dislocation. Unremarkable prevertebral soft tissues. XR/XR cervical spine 4V IMPRESSION: 1. Intervertebral arthroplasty at C6-C7 without evidence of hardware complication. 2. Mild reversal of the normal cervical lordosis, which may be positional or related to muscular spasm. 3. Mild degenerative disc disease at C5-C6. Electronically signed by: Hudson Segundo MD 03/10/2024 09:00 PM EDT
== END 2024-02-13 11:21 | disposition home or self-care (01) ==
LOC: HO.XRAY 11:20
PROVIDERS: PCP Internal Medicine; Visit Provider Physician Assistant
DX: M54.12 Radiculopathy, cervical region (principal)
CPT/HCPCS: 72050

== ENCOUNTER 2024-12-02 14:35 | Outpatient (AMB) | payer OTHER, SELFPAY ==
--- NOTE | 2024-12-02 14:43 | A.SPINEOV_ITS ---
Intake Visit Reasons: neck pain and numbness Intake Note: Ms. Chávez is here today c/o Neck pain and numbness. Car Trimmer Required: No Allergies oxycodone [From PERCOCET] Allergy (Intermediate, Verified 02/13/24 11:53) Hives Assessment & Plan Assessment & Plan (1) Cervical radiculitis: Code(s): M54.12 - Radiculopathy, cervical region Category: Medical Plan Mrs Chávez is here in follow-up. She underwent a C6-7 total disc arthroplasty last year with excellent results in relief of her arm pain. Sometime around June she started to notice a pain on the right side of her neck and toward the back of her head that eventually started to progress down her neck into her right arm stopping at about her mid biceps level. It felt very similar to previous nerve pain, but she was just hoping it would go away. She has been on Motrin 600 mg 4 times a day now for the last 3-4 months. She can barely sleep. She will also get tingling going down her arm. She is very frustrated because she is having a hard time doing simple things like driving. She did see her primary care physician and they gave her a little bit of prednisone which helped briefly. She has also been dealing with a bunch of other autoimmune issues including a thyroid issue that she has a follow up with endocrinology sometime soon. She is waiting on a rheumatoid consultation as well because of sister who has a history of lupus and they are concerned she may also have similar autoimmune responses. On exam today she is very uncomfortable, she is barely able to turn her head to the right without pain shooting down into her neck into her arm. Her strength is limited secondary to discomfort and pain. She has Velásquez's sign bilaterally. Gait is normal, lower extremity reflexes are brisk as well. I sent her for x-rays and these show good positioning of the hardware with retained motion of the artificial disc. No signs of auto fusion. I am concerned she has herniated a disc above or below her fusion so I am going to order an MRI to evaluate and see her back in the office. I understand the insurance company may want to engage with physical therapy before we do the MRI, but given the Velásquez's sign I think it is best we just pursue the MRI 1st to rule out cord compression. Total amount of time spent in this visit was 20 minutes in discussion of symptoms, x-ray imaging results and subsequent plan of care Henry Vazquez MD,PhD [facility] Orders: Orders MR cervical spine wo con Today M54.12 - Radiculopathy, cervical region XR cervical spine 4V Today M54.12 - Radiculopathy, cervical region Coding Level of Care Code Est Pt Level 3 (23524) Diagnoses Cervical radiculitis M54.12
--- OUTSIDE RECORDS SUMMARY | 2024-12-02 17:14 | XMS_ITS | Clinical Summary ---
Author Organization [facility], Address [address] [place] [address] Phone Care Team Providers Care Merry Go Round Attendant Name Role Phone Audi Hoffman MD Primary Care Provider [phone] Allergies No known active allergies Medications albuterol HFA (PROVENTIL HFA;VENTOLIN HFA) 108 (90 Base) MCG/ACT inhaler Inhale 2 puffs every 4 (four) hours if needed for wheezing Active Active Problems Problem Noted Date Diagnosed Date Degeneration of lumbar intervertebral disc 05/06 Chronic low back pain 05/06/2022 Social History Tobacco Use Types Packs/Day Years Used Date Smoking Tobacco: Never Assessed Comments Unknown Sex and Gender Information Value Date Recorded Sex Assigned at Not on file Legal Sex Female 3:12 PM EDT Gender Identity Not on file Sexual Orientation Not on file Last Filed Vital Signs Vital Sign Reading Time Taken Comments Blood Pressure 134/79 05/30/2022 10:41 AM EST Pulse 79 05/30/2022 10:41 AM EST Temperature 36.2 ??C (97.1 ??F) 05/30/2022 10:[address] Respiratory Rate - - Oxygen Saturation - - Inhaled Oxygen Concentration - - Weight - - Height - - Body Mass Index - - Plan of Treatment Health Maintenance Due Date Last Done Comments Hepatitis B Vaccine (1 of 3 - 19+ 3-dose series) 1999 Influenza Vaccine (Season Ended) 2025 04/11/20 22 Pneumococcal Vaccine: Peds ( 0 to 5 Years) and At-Risk Patients (6 to 49 Years) Aged Out No longer eligible b ased on patient's age to complete this topic [place] [address] Care Teams Merry Go Round Attendant Relationship Specialty Start Date End Date Audi Hoffman MD PCP - General Internal Medicine 05/06/22
== END 2024-12-02 15:36 | disposition home or self-care (01) ==
LOC: HO.HNS 14:36
PROVIDERS: PCP Internal Medicine; Visit Provider Physician Assistant
DX: M54.12 Radiculopathy, cervical region (principal)
CPT/HCPCS: 99213

== ENCOUNTER 2024-12-02 14:35 | Outpatient (REF) | payer OTHER, SELFPAY ==
--- NOTE | ~2024-12-02 | XR_ITS ---
EXAMINATION: XR CERVICAL SPINE 4-5 VIEWS HISTORY: M54.12 - Radiculopathy, cervical region COMPARISON: Comparison is made with the prior examination dated 02/13/2024. FINDINGS: AP, and neutral, flexion, and extension lateral views of the cervical spine are submitted. Osseous mineralization is normal. Seven cervical vertebral bodies are identified maintaining normal height without evidence of fracture or subluxation. There is straightening of the normal cervical lordosis. The patient is again noted to be status post placement of a disc prosthesis at C6-7. There is no abnormal motion with flexion or extension. There is mild degenerative disc disease at the C5-6 level with disc space narrowing and osteophyte formation. There is no prevertebral soft tissue swelling. XR/XR cervical spine 4V IMPRESSION: 1. Disc prosthesis at C6-7. Straightening of the normal cervical lordosis. No abnormal motion is seen with flexion or extension. 2. Mild degenerative disc disease at the C5-6 level as described. Electronically signed by: Zander Hicks MD 12/02/2024 03:48 PM EDT
== END 2024-12-02 14:36 | disposition home or self-care (01) ==
LOC: HO.HOSX 14:35
PROVIDERS: PCP Internal Medicine; Visit Provider Physician Assistant
DX: M54.12 Radiculopathy, cervical region (principal)
CPT/HCPCS: 72050

== ENCOUNTER → 2024-12-02 15:08 | Outpatient (BNV) | payer OTHER, SELFPAY | PROVIDERS: PCP Internal Medicine; Visit Provider Radiology Diagnostic Radiology | DX: M54.12 Radiculopathy, cervical region (principal); Z96.89 Presence of other specified functional implants | CPT/HCPCS: 72050 ==

== ENCOUNTER → 2025-03-26 14:26 | Outpatient (BNV) | payer OTHER, SELFPAY | PROVIDERS: PCP Internal Medicine; Visit Provider General Practice | DX: M54.12 Radiculopathy, cervical region (principal) | CPT/HCPCS: 72141 ==

== ENCOUNTER 2025-03-26 14:31 | Outpatient (REF) | payer OTHER, SELFPAY ==
--- OUTSIDE RECORDS SUMMARY | 2025-03-26 14:33 | XMS_ITS | Clinical Summary ---
Author Organization [facility] Address [address] [place] [address] Phone Care Team Providers Care Steel Pourer Helper Name Role Phone Aislinn Dumont MD Unavailable Yonis Farrar MD Unavailable Isis Jarrett NP Unavailable [phone] Lupe Leggett RDCS Unavailable [email or web address] Aislinn Dumont MD Unavailable June Palafox MD Primary Care Provider + Allergies Active Allergy Reactions Criticality Noted Date Comments Oxycodone-Acetaminophen Hives,Itching,Pa lpitations,Sh ortness Of Breath High 06/29/2013 Medications gabapentin (NEURONTIN) 300 MG capsule Take 1 capsule by mouth daily as needed. 4 Active ibuprofen (ADVIL,MOTRIN) 600 MG tablet Take 1 tablet by mouth every 6 (six) hours as needed. 4 Active albuterol 90 mcg/actuation inhaler Inhale 2 Puffs into the lungs every 6 hours as needed for Cough, Wheezing or Shortness of Breath. 4 Active LORazepam (ATIVAN) 0.5 MG tablet daily as needed. 4 Active sertraline (ZOLOFT) 25 MG tablet Take 100 mg by mouth daily. 4 Active menthol (BIOFREEZE, MENTHOL,) 4 % Gel Apply topically. Act koby lidocaine (LIDODERM) 5 % Place 1 patch onto the skin daily. Remove & Discard patch within 12 hours or as directed by MD Active acetaminophen (TYLENOL) 500 MG tablet Take 500 mg by mouth every 6 (six) hours as needed for pain (specific location in comments). Active valACYclovir (VALTREX) 1000 MG tabletIndicatio ns:Recurrent cold sores Take 2 tabs every 12 hours for 1 day at first sign of cold sore. Repeat course as needed for recurrences 8 tablet 11 5 Active atenolol (TENORMIN) 25 MG tabletIndicatio ns:Low TSH level TAKE 1 TABLET (25 MG TOTAL) BY MOUTH DAILY. 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 No cough/night sweats or other concerning sxs H/O degenerative disc disease Assessment & Plan (06/15/2024 1:19 AM EST): Following at [facility] Multiple spinal surgeries, notes severe OA as well Continue to follow Anxiety disorder Encounters Date Type Department Care Team Description 01/11/2025 Refill [facility] Medicine [address] [place] [id number] June Palafox MD Medication Refill from Last 3 Months Family History Medical History Relation Comments Hyperthyroidism Father Osteoarthritis Father Diabetes Maternal Aunt Bipolar disorder Mother Coronary artery disease Mother Breast cancer Neg Hx Colon cancer Neg Hx Relation Status Comments Father Maternal Aunt Mother Social History Tobacco Use Types Packs/Day Years Used Date Smoking Tobacco: Former Cigarettes 0.3 21 1 997 - 06/30/2017 Smokeless Tobacco: Never Tobacco Cessation:Counseling Given: Not Answered Alcohol Use Standard Drinks/Week Comments Never 0 (1 standard drink = 0.6 oz pur e alcohol) former social Child or Family Care Answer Date Record ed Do you have problems with on e of the following making it difficult for you to work, study, or receive health care? No 06/10/2024 Education Answer Date Recorded Are you interested in help w ith more adult education (for example, completing high school, GED, job training, learning the Ecuad[place] language, technical skills, or developing parenting skills)? No 06/10/2024 Are you concerned about learning? Not on file 06/10/2024 No 06/10/2024 Yes 06/10/2024 Food Answer Date Recorded Within the past 6 months we worried whether our food would run out before we got money to buy more. Never True 06/10/2024 Within the past 6 months the food we bought just didn't last and we didn't have enough money to get more. Never True Residential Stability Answer Date Recor ded What is your housing situation today? I have alejandrina sing 06/10/2024 How many times have you move d in the past 12 months? Zero (I did not move) 06/10/2024 Paying for Meds Answer Date Recorded Do you have trouble paying for medicines? No 06/10/2024 Paying Utility Bills Answer Date Record ed Do you have trouble paying your heating or elect ricity bill? No 06/10/2024 Transportation Answer Date Recorded Has the lack of transportati on kept you from medical appointments or from getting medications? No 06/10/2024 Unemployment Answer Date Recorded Are you currently unemployed or working on a part-time or temporary basis, and looking for work? No 06/10/2024 Digital Access Answer Date Recorded No 06/10/2024 Yes 06/10/2024 Do you have reliable internet access at home? Ye s 06/10/2024 Do you have a device (e.g., phone, tablet, computer) with a working camera? Yes 06/10/2024 Intimate Partner Violence Answer Date R ecorded Denied Basic Needs Not on file 06/10/2024 In the past 12 months have y ou been in a relationship with a person who hurts, threatens, or tries to control you? No 06/10/2024 Worried food would run out Not on file 06/10 In the past 12 months have y ou been in a relationship with a person who hurts, threatens, or tries to control you? No 06/10/2024 Comments Unknown Sex and Gender Information Value Date Recorded Sex Assigned at Female 01/20/2024 11:53 AM EDT Legal Sex Female 10:29 PM EDT Gender Identity Female 01/20/2024 11:53 AM EDT Sexual Orientation Straight 01/20/2024 11 :53 AM EDT Last Filed Vital Signs Vital Sign Reading Time Taken Comments Blood Pressure 124/80 08/24/2024 10:24 AM EST Pulse 81 08/24/2024 10:24 AM EST Temperature 36.1 C (96.9 F) 08/24/2024 10:24 AM EST Respiratory Rate - - Oxygen Saturation 100% 08/24/2024 10:24 AM EST Inhaled Oxygen Concentration - - Weight 68.5 kg (151 lb) 08/24/2024 10:24 AM EST Height 160 cm (5' 2.99 ) 08/24/2024 10:24 AM EST Body Mass Index 26.76 08/24/2024 10:24 AM EST Plan of Treatment Health Maintenance Due Date Last Done Comments HEPATITIS C SCREENING 1998 HIV ONE-TIME SCREENING (18-65 YEARS) 1998 PAP SMEAR 2001 MAMMOGRAM 2020 INFLUENZA VACCINE (#1) 2025 , 03/13/2020, 04/08/2019, Additional history exists COVID-19 VACCINE ( season) 2025 05/03/2021, 10/10/2020, 09/12/2020 DEPRESSION SCREENING 06/10/2025 06/10/2024 SCREENING FOR DIABETES 08/24/2027 08/24/2024 Adult Td,Tdap Booster 12/04/2027 12/03/2017 , 08/14/2016, 04/17/2007, Additional history exists SMOKING STATUS SCREENING (Every 5 Years) 06/14/2029 06/14/2024 PNEUMOCOCCAL VACCINES (0-49 years) Aged Out 10/08/2017, 08/14/2016 No longer eligibl e based on patient's age to complete this topic HEPATITIS A VACCINES Aged Out No long er eligible based on patient's age to complete this topic HIB VACCINES Aged Out No longer eligi ble based on patient's age to complete this topic MENINGOCOCCAL VACCINES (ACWY) Aged Out No longer eligible based on patient's age to complete this topic MENINGOCOCCAL VACCINES (B) Aged Out N o longer eligible based on patient's age to complete this topic Medical Devices Not on file Insurance [facility] POS [place]RIQUE [place] [facility] [place] [id number] [facility] [facility] [place] ISIDRO [place] DE ISIDRO D[place] DE [address] [facility] [place] Ding 10 [facility]ing [facility] Ding [facility] [place] Ding Care Teams Steel Pourer Helper Relationship Specialty Start Date End Date June Palafox MD [address] [place] [address], [address] [place] [address] [email or web address] PCP - General Family Medicine 06/14/24 Aislinn Dumont MD [address] [place] [id number] 04/15/17 Yonis Farrar MD [address] [place] [address], [address] [place] [address] [email or web address] Historical LMR Provider 04/16/17 Isis Jarrett NP [address] [place] [id number] Historical LMR Provider 04/16/17 Lupe Leggett, MICHELLECS Historical LMR Provider 04/16/17 Aislinn Dumont MD [address] [place] [id number] Historical LMR Provider 04/16/17 Additional Source Comments The information contained in this document represents components of the legal health record. It is not the complete legal health record.[facility]
--- OUTSIDE RECORDS SUMMARY | 2025-03-26 14:33 | XMS_ITS | Clinical Summary ---
Author Organization [facility] [address] [place] [address] [address] [place] [address] Phone Care Team Providers Care Commercial Real Estate Sales Manager Name Role Phone Audi Hoffman MD Primary Care Provider [phone] Allergies Active Allergy Reactions Criticality Noted Date Comments Oxycodone-Acetaminophen Itching 06/29/2013 Medications docusate sodium (COLACE) 100 mg capsule TAKE 1 CAPSULE BY MOUTH TWICE A DAY 06/06/2022 Active FLUoxetine (PROzac) 10 mg capsule Take 1 Capsule by mouth daily. 10/09/2023 Active gabapentin (NEURONTIN) 300 mg capsule Take 1 Capsule by mouth 3 times daily. 09/09/2023 Active valACYclovir (VALTREX) 1 gram tablet 08/20/2023 Active ibuprofen (ADVIL,MOTRIN) 600 mg tablet Take 1 Tablet by mouth every 6 hours as needed for Pain. 08/28/2023 Active sertraline (ZOLOFT) 100 mg tablet Take 1 tablet (100 mg total) by mouth 1 (one) time each day in the morning. 09/11/2024 Active albuterol HFA (PROAIR HFA ; PROVENTIL HFA ; VENTOLIN HFA) 90 mcg/actuation inhalerIndicatio ns:Asthma, unspecified asthma severity, unspecified whether complicated, unspecified whether persistent Inhale 2 puffs by mouth every 6 (six) hours if needed for wheezing. 6.7 g 2 10/11/2024 Active Active Problems Problem Noted Date Diagnosed Date Disc disease, degenerative, lumbar or lumbosacra l 04/25/2022 Overview (06/10/2024): Last Assessment & Plan: Patient is approximately 3 weeks s/p L5-S1 ALIF and posterior pedicle screw fixation. She is doing very well postop, states the first 2-week she had a little bit of tingling in the distal legs, that has gone away, she is not really experiencing much pain, using muscle relaxers and Tylenol for incisional or muscle discomfort. She denies any fever, wound drainage, sweats chills, bowel bladder issues other than some constipation. She was using Colace, stopped her narcotics. She is eating well. He is trying to stay active and walk regularly. She is done physical therapy in the past, feels it helps her, would like a prescription that she can use in the future once her back is more healed. Ms. Chávez is doing well postop, should note continued improvements with time. She has a follow-up appointment in [address] Vazquez, with lumbar spine x- rays. All postop questions answered. She did not need any refills today. She will call with any concerns or questions. 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 Overview (06/10/2024): Being treated 9 months of INH, started 12/11 Restless legs syndrome (RLS) 11/06/2012 LGSIL on Pap smear of cervix 11/06/2012 Overview (06/10/2024): LGSIL (low grade squamous intraepithelial dysplasia) : EVA 1, colposcopy 09/09 Low back pain 10/25/2011 Herpes simplex virus (HSV) infection 04/17/2007 Overview (06/10/2024): lips IMO update Asthma 12/18/2005 Abnormal Pap smear of cervix 12/18/2005 Overview (06/10/2024): with HPV EVA I, squamous metaplasia, leep 09/09 Immunizations Name Administration Dates Next Due DTP 03/16/1985, 1,1980,08/15 Hepatitis B (Ujqanii-F-Rtzmm , Recombivax HB-Adult) 19yo and older 10/30/2001,09/02/1997,03/26/1996 Influenza Quadravalent, MDCK , 0.5ml, preservative free (Flucelvax) 6mo and older 04/09/2022,03/13/2020 Influenza trivalent, 0.5mL, preservative free (Fluarix; FluLaval; Fluzone) ages 6mo and older (Afluria) 3 years and older 04/08/2019,04/08/2019,04/15/2018,04/25 Influenza trivalent, with pr eservative (Fluzone; Afluria) 6mo and older 04/04/2021,04/24/2016 Influenza, Unspecified 04/12/2014 MMR, measles mumps and rubel la Live (Priorix; M-M-R II) 12mo and older 08/23/1992,10/02/1983 OPV 03/16/1985, 1,1980,08/15 Pneumococcal conjugate 20 va lent (Prevnar 20, PCV 20) 2mo and older 10/11/2024 Pneumococcal polysaccharide 23 valent (Pneumovax 23) 2yo and older 10/08/2017,08/14/2016 TD, Adsorbed, Preservative Free 12/13/1996 Tdap Tetanus diptheria acell ular pertussis (Boostrix; Adacel) 7yo and older 12/03/2017,08/14/2016,04/17/2007 Varicella live (Varivax) 12m o and older 10/30/2001,11/28/1981 Surgical History Surgery Date Site/Laterality Comments TUBAL LIGATION PROCEDURE: HISTORICAL TUBAL LIGATION BREAST BIOPSY PROCEDURE: BX BREAST; PERC NEEDLE CORE W/IMAG GUID; COMMENT: rt side-benign OTHER SURGICAL HISTORY 06/05/2022 PROCEDURE: ND ARTHRODESIS POSTERIOR INTERBODY 1 NTRSPC LUMBAR; COMMENT: L5-S1 ALIF and posterior pedicle fixation, Dr. 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 DX:Positive PPD; COMMENT: Being treated 9 months of INH, started 12/11 Family History Medical History Relation Name Comments Diabetes Aunt maternal Asthma Daughter Hyperthyroidism Father HYPER Coronary artery disease Mother hype rtension, uterine cancer (31 years), diabetes Diabetes Sister 1 x 1 type I Asthma Sister 2 x 1 Stroke Uncle maternal Relation Name Status Comments Aunt maternal Alive Brother x 1 Alive Daughter Alive Father Alive Maternal Grandfather Maternal Grandmother Mother Alive Paternal Grandfather unknown Paternal Grandmother unknown Sister 1 x 1 Alive Sister 2 x 1 Uncle maternal Social History Tobacco Use Types Packs/Day Years Used Date Smoking Tobacco: Former Smokeless Tobacco: Never Tobacco Cessation:Counseling Given: Not Answered Alcohol Use Standard Drinks/Week Comments Yes 0 (1 standard drink = 0.6 oz pur e alcohol) Housing Instability Answer Date Recorde d Are you worried that in the next 2 months you may not have stable housing? No 10/11/2024 Food Access & Nutrition Answer Date Rec orded Do you have access to a vari ety of food including fruits and vegetables? Yes 10/11/2024 Health Literacy Answer Date Recorded How often do you need to hav e someone help you when you read instructions, pamphlets, or other written material from your doctor or pharmacy? Sometimes 10/11/2024 Caregiver: How often do you need to have someone help you when you read instructions, pamphlets, or other written material from your doctor or pharmacy? Not on file 10/11/2024 Financial Risk Answer Date Recorded How hard is it for you to pa y for the very basics like food, housing, medical care, and air conditioning / heating? Somewhat hard 10/11/2024 Transportation Answer Date Recorded Has the lack of transportati on kept you from meetings, work, or from getting things needed for daily living? No Has the lack of transportati on kept you from medical appointments or from getting medications? No 10/11/2024 Social Isolation Answer Date Recorded How often do you feel lonely or isolated from those around you? Sometimes 10/11/2024 Food Risk Answer Date Recorded Within the past 12 months we worried whether our food would run out before we got money to buy more. Never true 10/11/2024 Within the past 12 months th e food we bought just didn't last and we didn't have money to get more. Never true 10/11/2024 Dependent Care Answer Date Recorded Do you need help finding or paying for care for your loved ones. For example, childbirth and infant care teacher or elderly care for an older adult? No 10/11/2024 Education Answer Date Recorded Do you think completing more education or training, like finishing a GED, going to college, or learning a trade, would be helpful for you? N/A 10/11/2024 Employment and Income Answer Date Recor ded During the last four weeks, have you been actively looking for work? No 10/11/2024 Living Situation Answer Date Recorded What is your living situation? 0 10/11/2024 Comments No Sex and Gender Information Value Date Recorded Sex Assigned at Not on file Legal Sex Female 5:42 PM EST Gender Identity Not on file Sexual Orientation Not on file Obstetrics History Last Filed Vital Signs Vital Sign Reading Time Taken Comments Blood Pressure 127/84 11/04/2024 3:13 PM EDT Pulse 92 11/04/2024 3:13 PM EDT Temperature 35.8 C (96.4 F) 11/04/2024 3:13 PM EDT Respiratory Rate 15 10/11/2024 9:05 AM EDT Oxygen Saturation 100% 11/04/2024 3:13 PM EDT Inhaled Oxygen Concentration - - Weight 69.4 kg (153 lb) 11/04/2024 3:13 PM EDT Height 157.5 cm (5' 2 ) 11/04/2024 3:13 PM EDT Body Mass Index 27.98 11/04/2024 3:13 PM EDT Plan of Treatment Upcoming Encounters Date Type Department Care Team (Late st Contact Info) Description 04/26/2025 8:00 AM EDT Office Visit Adult Medicine [address] [address] Wu Tinsley PA [address] [place] [address] Health Maintenance Due Date Last Done Comments HIV Screening 06/08/2022 Hepatitis C Screening 06/08/2022 Cervical Cancer Screening: Pap Smear 09/13/2024 09/13/2021 Breast Cancer Screening 10/26/2024 10/26/2022, 12/16 COVID-19 Vaccine ( season) 2025 05/03/2021, 10/10/2020, 09/12/2020 Influenza Vaccine (#1) 2025 , 04/04/2021, 03/13/2020, Additional history exists Social Influencers of Health Screening 10/11/2025 10/11/2024 DTaP,Tdap,and Td Vaccines (8 - Td or Tdap) 12/04/2027 12/03/2017, 08/14/2016, 04/17/2007, Additional history exists Cholesterol Screening (Lipid Panel) 11/03/2029 11/03/2024, 11/11/2022 IPV Vaccines Completed 03/16/1985, 11/28, 1980, Additional history exists MMR Vaccines Completed 08/23/1992, 10/02/1983 Hepatitis B Vaccines Completed 10/30/2001, 09/02/1997, 03/26/1996 Varicella Vaccines Aged Out 10/30/2001, 11/28/1981 No longer eligible based on patient's age to complete this topic Depression Screening Completed 10/11/2024, 10/09/19 Pneumococcal Vaccine: Pediatrics (0 to 5 Years) and At-Risk Patients (6 to 49 Years) Completed 10/11/2024, 10/08/2017, 08/14/2016 HIB Vaccines Aged Out No longer eligi ble based on patient's age to complete this topic HPV Vaccines Aged Out No longer eligi ble based on patient's age to complete this topic Hepatitis A Vaccines Aged Out No long er eligible based on patient's age to complete this topic Meningococcal ACWY Vaccine Aged Out N o longer eligible based on patient's age to complete this topic Meningococcal B Vaccine Aged Out No l onger eligible based on patient's age to complete this topic RSV Immunization Patients Under 20 months Aged Out No longer eligible based on patient's age to complete this topic Procedures Procedure Name Priority Date/Time Associated Diagnosis Comments LIPID PANEL WITH REFLEX TO DIRECT LDL Routine 11/03/2024 10:45 AM EDT Screening, lipid DEPRESSION SCREENING Routine 10/09/2023 SCREENING MAMMOGRAPHY BI 2-VIEW BREAST INC CAD Routine 10/26/2022 12:23 PM EDT Encounter for screening mammogram for malignant neoplasm of breast PAP SMEAR Routine 09/13/2021 from Last 3 Months or Most Recently Relevant to Health Maintenance Results * (ABNORMAL) Lipid panel with reflex to direct LDL (11/03/2024 10:45 AM EDT) Cholesterol 198 0 - 200 mg/dL LAB CHEMISTRY [facility] Triglycerides 71 0 - 150 mg/dL LAB CHEMISTRY METHOD 11/03/2024 1:07 PM [facility] HDL 66 >=40 mg/dL LAB CHEMISTRY METHOD 11/03/2024 1:07 PM [facility] LDL Calculated 118(H) 0 - 100 mg/dL LAB CHEMISTRY METHOD 11/03/2024 1:07 PM [facility] VLDL Cholesterol Hernesto 14.2 mg/dL LAB CHEMISTRY METHOD 11/03/2024 1:07 PM [facility] Non HDL Chol. (LDL+VLDL) 132 <145 mg/dL LAB CHEMISTRY METHOD 11/03/2024 1:07 PM [facility] Chol/HDL Ratio 3.0 0.0 - 4.4 LAB CHEMISTRY METHOD 11/03/2024 1:07 PM [facility] Blood Venous blood specimen / Unknown Venipuncture / Unknown 11/03/2024 10:45 AM EDT 11/03/2024 10:45 AM EDT Audi Hoffman MD LAB BLOOD ORDERABLES Final [facility]u lt [facility] [address] [place] [address], * Depression Screening (10/09/2023) Depression Screening Abstracted Historical Provider HEALTH MAINTENANCE Final Result * SCREENING MAMMOGRAPHY BI 2-VIEW BREAST INC CAD (10/26/2022 12:23 PM EDT) Anatomical Region Laterality Modality Radiographic Milena ging 12/16/2020 8:48 AM EDT Narrative 10/28/2022 11:03 AM EDT This is a summary report. The complete report is available in the patient's medical record. If you cannot access the medical record, please contact the sending organization for a detailed fax or copy. Full field digital screening tomosynthesis mammography, reviewed with CAD and compared to previous. The breast tissue is heterogeneously dense, limiting sensitivity. No suspicious mass, architectural distortion or suspicious calcifications are identified. IMPRESSION: : Dense breast tissue, limiting the sensitivity of mammography. No mammographic evidence of malignancy. BIRADS 1-Negative; N. 5 year breast cancer risk assessment 0.6 % Lifetime breast cancer risk assessment 7.3 % Breast cancer risk category Low (<15%) Procedure Note Radha Olivera MD - 08/04/2023 This is a summary report. The complete report is available in thepatient's medical record. If you cannot access the medical record, pleasecontact the sending organization for a detailed fax or copy. Full field digital screening tomosynthesis mammography, reviewed with CADand compared to previous. The breast tissue is heterogeneously dense,limiting sensitivity. No suspicious mass, architectural distortion orsuspicious calcifications are identified. IMPRESSION: : Dense breast tissue, limiting the sensitivity of mammography. Nomammographic evidence of malignancy. BIRADS 1-Negative; N. 5 year breast cancer risk assessment 0.6 % Lifetime breast cancer risk assessment 7.3 % Breast cancer risk category Low (<15%) us Audi Hoffman MD IMG XR PROCEDURES Final Result * Pap Smear (09/13/2021) Pap smear Abstracted, No interpretation Historical Provider HEALTH MAINTENANCE Final Result from Last 3 Months or Most Recently Relevant to Health Maintenance [id number] [facility] IGNACIO MAR [phone] Care Teams Commercial Real Estate Sales Manager Relationship Specialty Start Date End Date Audi Hoffman MD PCP - General Internal Medicine 09/29/20
--- OUTSIDE RECORDS SUMMARY | 2025-03-26 14:33 | XMS_ITS | Clinical Summary ---
Author Organization [facility] Address [address] [facility] [address] [place] [address] Care Team Providers Care Inward Toll Operator Name Role Phone Audi Hoffman MD Primary Care Provider [phone] Allergies Active Allergy Reactions Criticality Noted Date Comments Oxycodone-Acetaminophen 12/14/2024 Medications gabapentin (Neurontin) 300 mg capsule Take 300 mg by mouth three times daily. Active sertraline (Zoloft) 100 mg tablet Take 100 mg by mouth once daily. Active LORazepam (Ativan) 0.5 mg tablet Take 0.5 mg by mouth every 6 (six) hours if needed for anxiety. Active ibuprofen 600 mg tablet Take by mouth. Active valACYclovir (Valtrex) 1 gram tablet Take 1,000 mg by mouth twice daily. Active albuterol-budeso nide 90-80 mcg/actuation HFA aerosol inhaler Inhale. Active cyclobenzaprine (Flexeril) 10 mg tabletIndication s:Muscle spasm Take 1 tablet (10 mg) by mouth at bedtime. 30 tablet 01/24/2025 Active Active Problems Problem Noted Date Diagnosed Date Rash 12/16/2024 Back stiffness 12/16/2024 Chronic bilateral low back pain with left-sided sciatica 12/16/2024 Muscle spasm 12/16/2024 Joint swelling 12/16/2024 Chronic pain of both knees 12/16/2024 Assessment & Plan (12/16/2024 5:01 PM EDT): Patient is 44 yo F with PMHx of anxiety, depression, restless leg syndrome, HSV on valacyclovir , DDD s/p cervical ACDF and lumbar discectomy c/b by collapse requiring fusion, osteoarthritis of the knees seen today in consultation for evaluation for an autoimmune disease by her fur liner. She has chronic history of muscle pain, b/l knee OA, erythema of the cheeks and the bridge of the nose with burning(does not connect) and possible raynaud's of the left foot. Will work her up for lupus, though low suspicion. No inflammatory peripheral joint pain. Erythema of the cheeks is not necessarily a malar rash, other differentials including rosacea possible. Her lower back pain has some morning and nighttime predominance but she has had lumbar discectomy c/b by collapse requiring fusion which could be resulting in the pain. Will evaluate for SPA with XRAY and HLA-B27. The dry mouth, abdominal pain, nausea,diarrhea hair loss, night sweats, very poor sleep, brittle nails, feels cold, locking of the right 3rd digit do not collectively increase suspicion for a systemic autoimmune disease. MSK pain of the neck likely due to muscle spasms which is likely reactive to R neck cervical radiculopathy. Following with ortho for this. No hypermobility but if workup negative, MSK pain likely worsened due to chronic pain sensitization/fibromyalgia would be likely. -FU JHONNY, ENAs, complement, UA, SeD,CRP -FU SI joint XR and HLA-B27 -Start 10mg cyclobenzaprine Encounters Date Type Department Care Team Description 01/22/2025 Refill [facility] Rheumatology [address] [place] [address] [address] [place] [address] Gabby Iniguez MD Muscle spasm from Last 3 Months Social History Tobacco Use Types Packs/Day Years Used Date Smoking Tobacco: Former Cigarettes Tobacco Cessation:Counseling Given: Not Answered Alcohol Use Standard Drinks/Week Comments Yes 0 (1 standard drink = 0.6 oz pur e alcohol) socially Comments Unknown Sex and Gender Information Value Date Recorded Sex Assigned at Female 12/03/2024 9:25 AM EDT Legal Sex Female 9:22 AM EDT Gender Identity Female 12/03/2024 9:25 AM EDT Sexual Orientation Not on file Last Filed Vital Signs Vital Sign Reading Time Taken Comments Blood Pressure 122/78 12/14/2024 11:35 AM EDT Pulse 70 12/14/2024 11:35 AM EDT Temperature - - Respiratory Rate - - Oxygen Saturation 100% 12/14/2024 11:35 AM EDT Inhaled Oxygen Concentration - - Weight 67.1 kg (148 lb) 12/14/2024 11:35 AM EDT Height 158.5 cm (5' 2.4 ) 12/14/2024 11:35 AM ED T Body Mass Index 26.72 12/14/2024 11:35 AM EDT Plan of Treatment Health Maintenance Due Date Last Done Comments HIV Screening 1980 Diabetes Screening 1998 Hepatitis C Screening 1998 Pap Smear 2001 HPV Vaccines (1 - 3-dose SCDM series) 2007 Cervical Cancer Screening 2010 HPV/Cotest 2010 Mammogram 2020 Depression Screening 06/30/2024 COVID-19 Vaccine ( season) 2025 05/03/2021, 10/10/2020, 09/12/2020 Influenza Vaccine (#1) 2025 2, 04/04/2021, 03/13/2020, Additional history exists DTaP/Tdap/Td Vaccines (8 - Td or Tdap) 12/04/2027 12/03/2017, 08/14/2016, 04/17/2007, Additional history exists Lipid Panel 11/03/2029 11/03/2024 IPV Vaccines Completed 03/16/1985, 11/28, 1980, Additional history exists MMR Vaccines Completed 08/23/1992, 10/02/1983 Hepatitis B Vaccines Completed 10/30/2001, 09/02/1997, 03/26/1996 Pneumococcal Vaccine: Pediatrics (0 to 5 Years) [...] patient's age to complete this topic Meningococcal Vaccine Aged Out No lizette yung eligible based on patient's age to complete this topic Rotavirus Vaccines Aged Out No longer eligible based on patient's age to complete this [place] [id number] [facility] HMO/[place] [id number] Care Teams Inward Toll Operator Relationship Specialty Start Date End Date Audi Hoffman MD [address] [place] [address] A[place] [address] PCP - General Qi Specialist 12/03/24
== END 2025-03-26 14:32 | disposition home or self-care (01) ==
LOC: HO.MRI 14:31
PROVIDERS: PCP Internal Medicine; Visit Provider Physician Assistant
DX: M54.12 Radiculopathy, cervical region (principal)
CPT/HCPCS: 72141

== ENCOUNTER 2025-04-04 10:52 | Outpatient (AMB) | payer OTHER, SELFPAY ==
--- NOTE | 2025-04-04 11:06 | A.SPINEOV_ITS ---
Intake Visit Reasons: MRI follow up Intake Note: Ms. Chávez is here today to F/u on the results to her MRI. Campus Recruiting Internship Required: No Allergies oxycodone (From PERCOCET) Allergy (Intermediate, Verified 02/13/24 11:53) Hives Assessment & Plan Assessment & Plan (1) Cervical radiculitis: Code(s): M54.12 - Radiculopathy, cervical region Category: Medical Plan Mrs Chávez is here in follow-up. Thankfully her MRI does not show any significant degenerative findings. The radiology report suggests there some moderate foraminal stenosis on the right at C4-5, but it is really not compressing a nerve and would not explain any significant pain. She is dealing with an overriding autoimmune problem right now with her thyroid which is causing multisystem dysfunction and pain throughout her body in multiple areas. I think what she is dealing with with the pain along the right side of her neck is having to do with this autoimmune issue. Her doctors are also talking about possible fibromyalgia diagnosis as well. She does not need any surgery from our standpoint. We would be happy to see her back down the road if something changes. Total amount of time spent in this visit was 20 minutes in discussion of symptoms, cervical MRI done at [place] [facility] results and subsequent plan of care Henry Vazquez MD,PhD [facility] Coding Level of Care Code Est Pt Level 3 (14011) Diagnoses Cervical radiculitis M54.12
--- OUTSIDE RECORDS SUMMARY | 2025-04-04 13:13 | XMS_ITS | Clinical Summary ---
Author Organization [facility] Address [address] [facility] [address] [place] [address] Care Team Providers Care Seconds Inspector Name Role Phone Audi Hoffman MD Primary Care Provider [phone] Allergies Active Allergy Reactions Criticality Noted Date [...] evaluation for an autoimmune disease by her painting worker. She has chronic history of muscle pain, [...] Type Department Care Team Description 01/22/2025 Refill [facility] Rheumatology [address] [place] [address] [address] [place] [address] Gabby Iniguez MD Muscle spasm [...] this [place] [id number] [facility] HMO/[place] [id number] Care Teams Seconds Inspector Relationship Specialty Start Date End Date Audi Hoffman MD [address] [place] [address] [place] [address] PCP - General Conflict Resolution Professional 12/03/24
--- OUTSIDE RECORDS SUMMARY | 2025-04-04 13:13 | XMS_ITS | Clinical Summary ---
Author Organization [facility], Address [address] [place] [address] Phone Care Team Providers Care Promotion Specialist Name Role Phone Audi Hoffman MD Primary Care Provider [phone] Allergies No known active allergies Medications albuterol [...] 79 05/30/2022 10:41 AM EST Temperature 36.2 C (97.1 F) 05/30/2022 10:41 AM EST Respiratory Rate - - Oxygen Saturation - - Inhaled Oxygen Concentration - - Weight - - Height - - Body Mass Index - - Plan of Treatment Health Maintenance Due Date Last Done Comments Hepatitis B Vaccine (1 of 3 - 19+ 3-dose series) 1999 Influenza Vaccine (#1) 2025 04/11/2022 Pneumococcal Vaccine: Peds ( 0 to 5 Years) and At-Risk Patients (6 to 49 Years) Aged Out No longer eligible b ased on patient's age to complete this topic Insurance Care Teams Promotion Specialist Relationship Specialty Start Date End Date Audi Hoffman MD PCP - General Internal Medicine 05/06/22
--- OUTSIDE RECORDS SUMMARY | 2025-04-04 13:13 | XMS_ITS | Clinical Summary ---
Author Organization [facility] [address] [place] [address] Address [address] [place] [address] Phone Care Team Providers Care Wind Site Manager Name Role Phone Audi Hoffman MD Primary Care Provider [phone] Allergies Active Allergy Reactions Criticality Noted Date [...] EVA I, squamous metaplasia, leep 09/09 Immunizations Immunization Administration Dates Next Due DTP 03/16/1985, 1,1980,08/15 Hepatitis B (Pqxvwxo-T-Wmrly , Recombivax HB-Adult) 19yo and older 10/30/2001,09/02/1997,03/26/1996 [...] rt side-benign OTHER SURGICAL HISTORY 06/05/2022 PROCEDURE: TX ARTHRODESIS POSTERIOR INTERBODY 1 NTRSPC LUMBAR; COMMENT: [...] care for your loved ones. For example, childcare attendant or elderly care for an older adult? [...] Date Recorded What is your living situation? Unrecognized valu e 10/11/2024 Comments No Sex and Gender Information [...] 8:00 AM EDT Office Visit Adult Medicine [address] [address] Wu Tinsley PA [address] [place] [phone] Health Maintenance Due Date Last Done Comments HPV Vaccines (1 - 3-dose SCDM series) 2007 HIV Screening 06/08/2022 Hepatitis C Screening 06/08/2022 [...] Cholesterol Screening (Lipid Panel) 11/03/2029 11/03/2024, 11/11/2022 RSV Immunization Adult Patients (1 - 1-dose 75+ series) 2055 IPV Vaccines Completed 03/16/1985, 11/28, 1980, Additional [...] mg/dL LAB CHEMISTRY METHOD 11/03/2024 1:07 PM [facility] Triglycerides 71 0 - 150 mg/dL LAB CHEMISTRY METHOD 11/03/2024 1:07 PM [facility] HDL 66 >=40 mg/dL LAB CHEMISTRY METHOD 11/03/2024 1:07 PM [facility] LDL Calculated 118(H) 0 - 100 mg/dL LAB CHEMISTRY METHOD 11/03/2024 1:07 PM [facility] VLDL Cholesterol Hernesto 14.2 mg/dL LAB CHEMISTRY METHOD 11/03/2024 1:07 PM [facility] Non HDL Chol. (LDL+VLDL) 132 <145 mg/dL LAB CHEMISTRY METHOD 11/03/2024 1:07 PM [facility] Chol/HDL Ratio 3.0 0.0 - 4.4 LAB CHEMISTRY METHOD 11/03/2024 1:07 PM [facility] Blood Venous blood specimen / Unknown Venipuncture / Unknown 11/03/2024 10:45 AM EDT 11/03/2024 10:45 AM EDT Audi Hoffman MD LAB BLOOD ORDERABLES Final Resu lt [facility] [address] [place] [address], [place] [phone] * Depression Screening (10/09/2023) Depression Screening Abstracted [...] Smear (09/13/2021) Pap smear Abstracted, No interpretation us Historical Provider HEALTH MAINTENANCE Final Result from Last 3 Months or Most Recently Relevant to Health Maintenance Insurance [employer] [address] [place] [id number] Care Teams Wind Site Manager Relationship Specialty Start Date End Date Audi Hoffman MD PCP - General Internal Medicine 09/29/20
--- OUTSIDE RECORDS SUMMARY | 2025-04-04 13:13 | XMS_ITS | Clinical Summary ---
Author Organization [facility] Address [address] [place] [address] Phone Care Team Providers Care Device Engineer Name Role Phone Aislinn Dumont MD Unavailable Yonis Farrar MD Unavailable Isis Jarrett NP Unavailable [phone] Lupe Leggett RDCS Unavailable [email or web address] Aislinn [...] Plan (06/15/2024 1:19 AM EST): Following at [facility] Multiple spinal surgeries, notes severe OA as well Continue to follow Anxiety disorder Encounters Date Type Department Care Team Description 01/11/2025 Refill [facility] Medicine [address] [place] [id number] June Palafox MD Medication Refill from Last [...] high school, GED, job training, learning the [place] language, technical skills, or developing parenting skills)? [...] topic Medical Devices Not on file Insurance [facility] POS [facility] POS [place]QUE [place] [facility] [place] [id number] ISIDRO NIXONJIM [facility] [place] ISIDRO N[facility] [place] ISIDRO [place] ISIDRO DOR[place] ME 10 [facility] JOSE [place]ANCIS[place] NIXONJIM [facility] [place] ME 10 [facility] N[facility] [place] Ding 10 [facility] N[facility] [place] Ding 10 [facility]ONJIM [facility] [place] Ding 10 [facility] JOSE FRANCISCO NIXONJIM [facility] [place] ME 10 [facility] N[facility]ON[facility] [place] Ding Care Teams Device Engineer Relationship Specialty Start Date End Date June Palafox MD [address] [place] [address], [address] [place] [address] [email or web address] PCP - General Family Medicine 06/14/24 Aislinn Dumont MD [address] [place] [phone] 04/15/17 Yonis Farrar MD [address] [place] [address], [address] [place] [address] [email or web address] Historical LMR Provider 04/16/17 Isis Jarrett NP [address] [place] [id number] Historical LMR Provider 04/16/17 Lupe Leggett, MICHELLECS Historical LMR Provider 04/16/17 Aislinn Dumont MD [address] [place] [id number] Historical LMR Provider 04/16/17 Additional Source Comments The information contained in this document represents components of the legal health record. It is not the complete legal health record.[facility]
== END 2025-04-04 12:07 | disposition home or self-care (01) ==
LOC: HO.HNS 10:53
PROVIDERS: PCP Internal Medicine; Visit Provider Physician Assistant
DX: M54.12 Radiculopathy, cervical region (principal)
CPT/HCPCS: 99213